=== PATIENT | female | born 1955 | race Caucasian/White ===

== ENCOUNTER 2016-11-13 09:59 | Emergency (ER) | payer MEDICAID ==
[~2016-11-13] VITALS: Ht 165.1 cm; Wt 102.5 kg
[~2016-11-13 09:59] MED LIST: BENA20TA48 PO; CIPR500T4 PO; METF500T4 PO; NAPR-688 PO; OMEP20CA16 PO; ONDA4TAB8 PO; PANT40TA3 PO; TRAM50TA2 PO
[2016-11-13 10:06] VITALS: Ht 165.1 cm; Wt 102.5 kg
[2016-11-13 12:17] LABS: URINE BLOOD (Dip) POC 1+ (NEGATIVE)
[2016-11-13 12:35] LABS: ADD SCAN DIFF NO
[2016-11-13 12:39] LABS: ABNORMAL IP MESSAGE 1; BASOPHIL # 0.1 10^3/ul (0.0-0.1); BASOPHILS % 1.2 % (0.0-2.0); EOSINOPHILS # 0.1 10^3/ul (0.0-0.5); HEMATOCRIT 43.9 % (37.0-47.0); HEMOGLOBIN 14.4 g/dl (12.0-16.0); LYMPHOCYTES % 25.4 % (15.0-51.0); MEAN CORPUSCULAR HEMOGLOBIN 33.9 pg (29.0-33.0); MEAN CORPUSCULAR HGB CONC 32.8 g/dl (32.0-37.0); MEAN CORPUSCULAR VOLUME 103.3 fl (82.0-101.0); MEAN PLATELET VOLUME 12.2 fl (7.4-10.4); MONOCYTE # 0.5 10^3/ul (0.3-0.9); MONOCYTES % 11.2 % (0.0-11.0); NEUTROPHIL # 2.4 10^3/ul (1.6-7.5); NEUTROPHILS % 58.7 % (39.0-77.0); PLATELET COUNT 92 10^3/UL (140-415); RED BLOOD COUNT 4.25 10^6/ul (4.20-5.40)
--- NOTE | 2016-11-13 12:49 | RADRPT ---
PROCEDURE: CT Brain without contrast. CLINICAL INDICATION: facial pain TECHNIQUE: A multiplanar CT of the brain was performed on a CT scanner utilizing axial imaging fro m the skull base through the vertex without IV contrast. The CTDIvol is 42.81 mGy and the DLP is 63 0.2 mGycm. One or more of the following dose reduction techniques were utilized: Automated exposur e control, adjustment of the mA and/or kV according to patient size, use of iterative reconstruction technique. COMPARISON: None FINDINGS: No evidence of intracranial hemorrhage or abnormal extra-axial fluid collection. The brain parenchyma is normal attenuation morphology with preservation of matt white differentiatio n and age appropriate size of the ventricles and subarachnoid spaces. The basal cisterns, posterior fossa contents, brainstem, craniocervical junction, orbits, pituitary axis, paranasal sinuses, mastoid air cells, and calvarium are unremarkable. IMPRESSION: 1. No intracranial hemorrhage or acute intracranial abnormality. RPTAT:AAJJ Physician Von Date Time Electronically viewed and signed by Physician Von on 11/13/2016 12:49 YAMILKA/
[2016-11-13 12:50] LABS: ALBUMIN 3.8 g/dl (3.3-4.9); ALBUMIN/GLOBULIN RATIO 0.88; BILIRUBIN,INDIRECT 1.1 mg/dl (0-1.1); BILIRUBIN,TOTAL 1.1 mg/dl (0.2-1.3); CALCIUM 9.5 mg/dl (8.4-10.2); CREATININE 0.56 mg/dl (0.44-1.00); POTASSIUM 4.4 mmol/L (3.5-5.1); TOTAL PROTEIN 8.1 g/dl (6.1-8.1)
--- NOTE | 2016-11-13 13:03 | RADRPT ---
PROCEDURE: CT Sinuses. CLINICAL INDICATION: facial pain TECHNIQUE: A CT of the sinuses was performed on a multidetector CT scanner utilizing direct bran l images. Sagittal and axial reformatted images were made. The CTDIvol is 29.45 and the DLP is 514 .47 mGycm. One or more of the following dose reduction techniques were utilized: Automated exposu re control, adjustment of the mA and/or kV according to patient size, use of iterative reconstructio n technique. COMPARISON: Headache and sinusitis. FINDINGS: Skull base: The cribriform plate, fovea ethmoidalis, lamina papyracea, anterior cranial fossa and pi tuitary sella are intact and normal in appearance. The anterior ethmoid artery sulcus and normal pos ition and symmetric bilaterally. Maxillary sinuses: The maxillary sinuses are clear without significant mucosal thickening or air-fluid levels. The ost iomeatal units are patent bilaterally. Ethmoid air cells: The ethmoid air cells are clear without significant mucosal thickening or air-fluid levels. Prominen t agger nasi cells Sphenoid sinuses: The sphenoethmoidal recesses appear grossly patent on the reformatted images. The sphenoid sinuses are clear. Frontal sinuses: The frontal recesses are both patent. The frontal sinuses are clear. Nasal cavity: Mild rightward deviation of the midportion of the nasal septum. Nasopharynx: The contours of the nasopharynx are normal. Mastoid air cells: Mastoid air cells are clear bilaterally. IMPRESSION: 1. Grossly unremarkable CT of the sinuses. RPTAT:AAJJ Physician Von Date Time Electronically viewed and signed by Physician Von on 11/13/2016 13:03 YAMILKA/
[2016-11-13] MEDS ORDERED: KETOROLAC 15 MG INJ IM STA (13:33)
[2016-11-13 14:01] LABS: PLATELET ESTIMATE PLT APPEAR DECREASED
[2016-11-13] MEDS ORDERED: NAPR-260 PO (14:06)
[2016-11-13] MEDS ORDERED: SODI30SP2 NS (14:15)
[2016-11-13 14:50] VITALS: BP 140/74; PULSE 66; RESP 18
--- NOTE | 2016-11-13 15:10 | ERD ---
ER Documentation Chief Complaint Date/Time DATE: 11/13/16 TIME: 14:41 Chief Complaint Complains of severe headache x 3 days HPI Patient is a 61 year old female with a past medical history of hypertension, diabetes, hyperlipidemia and cirrhosis who presents to the ED with headache on the top of her head x 1 month. She states that the pain comes and goes. She denies stating that this is the worst headache of her life. She states that she has had headaches like this in the past. She also complains of nosebleed on and off for 6 weeks. States that she has had nasal congestion and runny nose. She has also had a cough but the cough has resolved. Denies shortness of breath, chest pain or difficulty breathing. Denies dizziness, neck pain or neck stiffness. Denies abdominal pain, nausea, vomiting or diarrhea. Denies any trauma or triggering factor to her headache. She is not taking any medication for her symptoms. Denies leg pain or swelling. Patient also states tenderness in her maxillary and nasal area. She denies any trauma. But states that painful to touch. She also complains of mild numbness on the left side of her face on and off for the last month. She denies difficulty speaking walking. ROS All systems reviewed and are negative except as per history of present illness. Medications Home Meds Active Scripts Sodium Chloride (Saline Nasal [place]) 30 Ml [place], 30 ML NS BID for 14 Days, SPRAY Prov:MANNY COOPER PA-C 11/13/16 Naproxen* (Naprosyn*) 500 Mg Tablet, 500 MG PO BID Y for PAIN AND/OR INFLAMMATION, #30 TAB Prov:MANNY COOPER PA-C 11/13/16 Ondansetron Hcl* (Zofran*) 4 Mg Tablet, 4 MG PO Q6H for NAUSEA AND/OR VOMITING, #12 TAB Prov:HEBERT PACHECO MD 06/23/16 Pantoprazole* (Protonix*) 40 Mg Tablet.dr, 40 MG PO DAILY, #20 TAB Prov:HEBERT PACHECO MD 06/23/16 Tramadol HCl (Tramadol HCl) 50 Mg Tablet, 50 MG PO Q6 Y for PAIN, #12 TAB Prov:HEBERT PACHECO MD 06/23/16 Reported Medications Ciprofloxacin Hcl* (Ciprofloxacin Hcl*) 500 Mg Tablet, 500 MG PO Q12, #14 TAB 06/23/16 Omeprazole* (Omeprazole*) 20 Mg Capsule.dr, 20 MG PO BID, #60 CAP 06/23/16 Metformin Hcl* (Metformin Hcl*) 500 Mg Tablet, 500 MG PO WITH BREAKFAST DINNE, # 60 TAB 06/23/16 Benazepril Hcl* (Benazepril Hcl*) 20 Mg Tablet, 20 MG PO DAILY, #30 TAB 06/23/16 Naproxen* (Naproxen*) 500 Mg Tablet, 500 MG PO BID, TAB 06/23/16 Allergies Allergies: Coded Allergies: No Known Allergies (Verified Allergy, Mild, 06/23/16) PMhx/Soc Medical and Surgical Hx: pt denies Medical Hx, pt denies Surgical Hx History of Surgery: No Anesthesia Reaction: No Hx Neurological Disorder: No Hx Respiratory Disorders: No Hx Cardiac Disorders: No Hx Psychiatric Problems: No Hx Miscellaneous Medical Probl: Yes (DM, HIGH CHOLESTEROL; HTN) Hx Alcohol Use: No Hx Substance Use: No Hx Tobacco Use: No FmHx Family History: No coronary disease, No diabetes, No other Physical Exam Vitals Vital Signs Date Time Temp Pulse Resp B/P Pulse Ox O2 Delivery O2 Flow Rate FiO2 11/13/16 10:06 98.3 74 20 114/53 97 Physical Exam GENERAL: Well-developed, well-nourished female. Appears in no acute distress. HEAD: Normocephalic, atraumatic. EYES: Pupils are equally reactive bilaterally. EOMs grossly intact. No conjunctival erythema. ENT: Moist mucous membranes. No uvula deviation. No kissing tonsils. No exudates. NECK: Supple. No lymphadenopathy or thyromegaly. No meningismus. negative kernig. negative brudinski. LUNG: Clear to auscultation bilaterally. No rhonchi, wheezing, rales or coarse breath sounds. HEART: Regular rate and rhythm. No murmurs, rubs or gallops. Extremities: Equal pulses bilaterally. No peripheral clubbing, cyanosis or edema. No unilateral leg swelling. NEUROLOGIC: Alert and oriented. Moving all four extremities. 5/5 strength in all extremities. Normal speech. Steady gait. Cranial nerves II through XII intact SKIN: Normal color. Warm and dry. No rashes or lesions. Capillary refill < 2 seconds Result Diagram: 11/13/16 1215 11/13/16 1215 Results 24 hrs Laboratory Tests Test 11/13/16 12:15 11/13/16 12:18 White Blood Count 4.010^3/ul Red Blood Count 4.2510^6/ul Hemoglobin 14.4g/dl Hematocrit 43.9% Mean Corpuscular Volume 103.3fl Mean Corpuscular Hemoglobin 33.9pg Mean Corpuscular Hemoglobin Concent 32.8g/dl Red Cell Distribution Width 14.0% Platelet Count 9210^3/UL Mean Platelet Volume 12.2fl Neutrophils % 58.7% Lymphocytes % 25.4% Monocytes % 11.2% Eosinophils % 3.0% Basophils % 1.2% Nucleated Red Blood Cells % 0.0/100WBC Neutrophils # 2.410^3/ul Lymphocytes # 1.010^3/ul Monocytes # 0.510^3/ul Eosinophils # 0.110^3/ul Basophils # 0.110^3/ul Nucleated Red Blood Cells # 0.010^3/ul Differential Comment AUTO w/SCAN Platelet Estimate PLT APPEAR DECREASED Sodium Level 139mmol/L Potassium Level 4.4mmol/L Chloride Level 107mmol/L Carbon Dioxide Level 27mmol/L Anion Gap 9 Blood Urea Nitrogen 12mg/dl Creatinine 0.56mg/dl Glucose Level 89mg/dl Calcium Level 9.5mg/dl Total Bilirubin 1.1mg/dl Direct Bilirubin 0.00mg/dl Indirect Bilirubin 1.1mg/dl Aspartate Amino Transf (AST/SGOT) 64IU/L Alanine Aminotransferase (ALT/SGPT) 57IU/L Alkaline Phosphatase 125IU/L Total Protein 8.1g/dl Albumin 3.8g/dl Globulin 4.30g/dl Albumin/Globulin Ratio 0.88 Lipase 347U/L Bedside Urine pH (LAB) 5.5 Bedside Urine Protein (LAB) Negative Bedside Urine Glucose (UA) Negative Bedside Urine Ketones (LAB) Negative Bedside Urine Blood 1+ Bedside Urine Nitrite (LAB) Negative Bedside Urine Leukocyte Esterase (L Negative Current Medications Medications (Trade) Dose Ordered Sig/Sim Route PRN Reason Start Time Stop Time Status Last Admin Dose Admin Ketorolac Tromethamine (Toradol) 15 mg ONCE STAT IM 11/13/16 13:33 11/13/16 13:42 DC 11/13/16 13:45 Procedures/MDM ER COURSE: I kept the patient and/or family informed of laboratory and diagnostic imaging results throughout the emergency room course. EKG, MONITORS, & DIAGNOSTIC IMAGING: [place] [address] Radiology Main Line: [phone] DIAGNOSTIC IMAGING REPORT Patient: KRISTINE GUZMAN : 1955 Age: 61 Sex: F MR #: [id number] DOS: 11/13/16 1157 Ordering MD: MANNY COOPER PA-C Location: [facility] Room/Bed: PROCEDURE: CT Brain without contrast. CLINICAL INDICATION: facial pain TECHNIQUE: A multiplanar CT of the brain was performed on a CT scanner utilizing axial imaging from the skull base through the vertex without IV contrast. The CTDIvol is 42.81 mGy and the DLP is 630.2 mGycm. One or more of the following dose reduction techniques were utilized: Automated exposure control, adjustment of the mA and/or kV according to patient size, use of iterative reconstruction technique. COMPARISON: None FINDINGS: No evidence of intracranial hemorrhage or abnormal extra-axial fluid collection. The brain parenchyma is normal attenuation morphology with preservation of matt white differentiation and age appropriate size of the ventricles and subarachnoid spaces. The basal cisterns, posterior fossa contents, brainstem, craniocervical junction , orbits, pituitary axis, paranasal sinuses, mastoid air cells, and calvarium are unremarkable. IMPRESSION: 1. No intracranial hemorrhage or acute intracranial abnormality. RPTAT:AAJJ Physician Von Date Time Electronically viewed and signed by Physician Von on 11/13/2016 12:49 YAMILKA/ CC: MANNY COOPER PA-C [place] [address] Radiology Main Line: [phone] DIAGNOSTIC IMAGING REPORT Patient: KRISTINE GUZMAN : 1955 Age: 61 Sex: F [id number] DOS: 11/13/16 1157 Ordering MD: MANNY COOPER PA-C Location: [facility] Room/Bed: PROCEDURE: CT Sinuses. CLINICAL INDICATION: facial pain TECHNIQUE: A CT of the sinuses was performed on a multidetector CT scanner utilizing direct coronal images. Sagittal and axial reformatted images were made. The CTDIvol is 29.45 and the DLP is 514.47 mGycm. One or more of the following dose reduction techniques were utilized: Automated exposure control, adjustment of the mA and/or kV according to patient size, use of iterative reconstruction technique. COMPARISON: Headache and sinusitis. FINDINGS: Skull base: The cribriform plate, fovea ethmoidalis, lamina papyracea, anterior cranial fossa and pituitary sella are intact and normal in appearance. The anterior ethmoid artery sulcus and normal position and symmetric bilaterally. Maxillary sinuses: The maxillary sinuses are clear without significant mucosal thickening or air- fluid levels. The ostiomeatal units are patent bilaterally. Ethmoid air cells: The ethmoid air cells are clear without significant mucosal thickening or air- fluid levels. Prominent agger nasi cells Sphenoid sinuses: The sphenoethmoidal recesses appear grossly patent on the reformatted images. The sphenoid sinuses are clear. Frontal sinuses: The frontal recesses are both patent. The frontal sinuses are clear. Nasal cavity: Mild rightward deviation of the midportion of the nasal septum. Nasopharynx: The contours of the nasopharynx are normal. Mastoid air cells: Mastoid air cells are clear bilaterally. IMPRESSION: 1. Grossly unremarkable CT of the sinuses. RPTAT:AAJJ Physician Von Date Time Electronically viewed and signed by Physician Von on 11/13/2016 13:03 YAMILKA/ CC: MANNY COOPER PA-C MEDICATIONS: Toradol 30 mg IM. Tolerated well with no adverse reaction. LAB INTERPRETATION: CBC showed no evidence of systemic infection or severe anemia. CMP showed no evidence of electrolyte abnormalities, severe acidosis, alkalosis, renal failure , or liver disease. Lipase showed no evidence of acute pancreatitis. UA showed no evidence of leukocytes, nitrites or hematuria. Urine test was negative. MEDICAL DECISION MAKING: This is a 61-year-old female with a past medical history of hypertension, hyperlipidemia, cirrhosis and diabetes who presents with headache, facial pain on and off 1 month vital signs were reviewed. Patient is afebrile. Patient is not hypoxic. Patient has a temperature of 98.3 with a pulse of 74 and a blood pressure of 114/53. Patient's CAT scan is read by radiologist was unremarkable. Patient has headache of unknown etiology. Patient stated improvement in symptoms after Toradol. Low suspicion for intracranial hemorrhage, meningitis, intracranial mass, concussion, temporal arteritis, stroke, elevated intracranial pressure, seizure. Low suspicion for ACS, PE, AAA , dissection, DVT. Patient is here hemodynamically stable and I have low suspicion for anemia or other blood disorders. DISCHARGE: At this time, patient is stable for discharge and outpatient management with no new complaints during the ER course. Patient was sent home with Naprosyn and saline nasal spray. Patient will be discharged home with instructions to recheck for new or worsening symptoms such as fever, nausea, weakness, LOC and to follow up with primary care in the next 1-2 days. Patient was advised to return to the ER for any new or worsening symptoms. Plan was discussed and patient and/or family understands and agrees. Home instructions were given. Departure Diagnosis: Primary Impression: Headache Headache type: unspecified Headache chronicity pattern: unspecified pattern Intractability: not intractable Qualified Code: R51 - Nonintractable headache, unspecified chronicity pattern, unspecified headache type Condition: Stable Patient Instructions: Self-Care for Headaches Referrals: [facility] Usted se hurley hecho un examen mdico de control que le indica que no est en buster condicin que requiera tratamiento urgente en el Departamento de Emergencia. Un estudio ms profundo y el tratamiento de best condicin pueden esperar sin ningn riesgo hasta que usted sea atendida/o en el consultorio de best mdico o buster cl bridgett. Es responsabilidad suya arreglar buster srini para el seguimiento del dorina. MANEJO DE CONDICIONES NO URGENTES EN EL FUTURO 1) Si usted tiene un mdico de atencin primaria: Usted debera llamar a best mdico de atencin primaria antes de venir al departamento de emergencia. Despus de las horas de consultorio, best doctor o best asociado/a est disponible por telfono. El mdico o enfermero de justin en el servicio telefnico puede asesorarle por yohan medio para atender el problema, o dorina contrario se puede programar buster srini. 2) Si usted no tiene un mdico de atencin primaria: Llame al mdico o clnica de referencia que aparece abajo mike las horas de consultorio para hacer buster srini para que le vean. CLINICAS: [place] [address] [phone] [facility] [phone] [facility] [phone] [place] [phone] [place] [phone] [facility]. [phone] [address] Additional Instructions: Llame al doctor MAANA y roland buster SRINI PARA DENTRO DE 1-2 MATHEWS.Dgale a la secretaria que nosotros le instruimos hacer esta srini.Avise o llame si best condicin se empeora antes de la srini. Regresa aqui si peor o no mejor. MANNY COOPER PA-C November 13, 2016 15:02
== END 2016-11-13 14:50 | disposition home or self-care (01) ==
LOC: FTE 09:59
DX: R51 Headache (principal); I10 Essential (primary) hypertension; E11.9 Type 2 diabetes mellitus without complications; Z79.84 Long term (current) use of oral hypoglycemic drugs
CPT/HCPCS: 70450; 70486; 80053; 81003; 83690; 85025; 96372; J1885; Z7502

== ENCOUNTER 2017-02-10 16:30 | Inpatient (IN) | payer MEDICAID ==
[~2017-02-10] VITALS: Ht 165.1 cm; Wt 107.0 kg
[~2017-02-10 16:30] MED LIST changes: +NAPR-260 PO; +SODI30SP2 NS
[2017-02-10] MEDS ORDERED: ASPIRIN 325 MG TAB PO STA (16:58)
[2017-02-10] MEDS ORDERED: NITROGLYCERIN (SL) 0.4 MG TAB SL PRN (17:00)
[2017-02-10] MEDS ORDERED: GLIP5TAB13 PO (17:16)
[2017-02-10] MEDS ORDERED: ALBU8.5H3 INH (17:16)
[2017-02-10 17:46] LABS: ABNORMAL IP MESSAGE 1; BASOPHILS % 1.1 % (0.0-2.0); EOSINOPHILS # 0.1 10^3/ul (0.0-0.5); EOSINOPHILS % 3.4 % (0.0-7.0); HEMATOCRIT 39.8 % (37.0-47.0); HEMOGLOBIN 13.8 g/dl (12.0-16.0); LYMPHOCYTES # 0.9 10^3/ul (0.8-2.9); LYMPHOCYTES % 23.3 % (15.0-51.0); MEAN CORPUSCULAR HEMOGLOBIN 34.9 pg (29.0-33.0); MEAN CORPUSCULAR HGB CONC 34.7 g/dl (32.0-37.0); MEAN CORPUSCULAR VOLUME 100.8 fl (82.0-101.0); MEAN PLATELET VOLUME 12.1 fl (7.4-10.4); MONOCYTE # 0.5 10^3/ul (0.3-0.9); MONOCYTES % 13.3 % (0.0-11.0); NEUTROPHIL # 2.2 10^3/ul (1.6-7.5); NEUTROPHILS % 58.6 % (39.0-77.0); PLATELET COUNT 82 10^3/UL (140-415); RED BLOOD COUNT 3.95 10^6/ul (4.20-5.40); RED CELL DISTRIBUTION WIDTH 13.6 % (11.5-14.5); WHITE BLOOD COUNT 3.8 10^3/ul (4.8-10.8)
[2017-02-10 17:51] LABS: POSITIVE DIFF @See below
[2017-02-10 18:01] LABS: INR 1.16; PROTIME 14.8 Sec (12.2-14.2); PT RATIO 1.2
[2017-02-10 18:02] LABS: PARTIAL THROMBOPLASTIN TIME 30.7 Sec (25.0-35.0)
[2017-02-10 18:04] LABS: ALANINE AMINOTRANSFERASE 59 IU/L (13-69); ALBUMIN 3.8 g/dl (3.3-4.9); ALBUMIN/GLOBULIN RATIO 1.02; ALKALINE PHOSPHATASE 130 IU/L (42-121); ANION GAP 16 (8-16); ASPARTATE AMINO TRANSFERASE 64 IU/L (15-46); BILIRUBIN,INDIRECT 0.8 mg/dl (0-1.1); BILIRUBIN,TOTAL 0.8 mg/dl (0.2-1.3); BLOOD UREA NITROGEN 12 mg/dl (7-20); CALCIUM 9.1 mg/dl (8.4-10.2); CARBON DIOXIDE 27 mmol/L (21-31); CHLORIDE 104 mmol/L (97-110); CREATINE KINASE 123 IU/L (23-200); CREATININE 0.56 mg/dl (0.44-1.00); GLUCOSE 104 mg/dl (70-220); POTASSIUM 4.1 mmol/L (3.5-5.1); SODIUM 143 mmol/L (135-144); TOTAL PROTEIN 7.5 g/dl (6.1-8.1)
--- NOTE | 2017-02-10 18:14 | ERA ---
ER Documentation Chief Complaint Date/Time DATE: 02/10/17 TIME: 18:11 Chief Complaint pain @ left chest area radiates to upper back HPI This is a 7-year-old female that presents to the emergency department complaining of left-sided chest pain that has been intermittent over the past 12 hours. Patient indicates that the pain is a pressure-like sensation and does radiate to her back. The pain is 8 out of 10 in intensity. She denied associated symptoms of nausea vomiting or diaphoresis. She stated she has not experienced any fever shaking or chills. She also indicates she has had swelling of both of her legs has been present for the past 3 weeks. She denies any shortness of breath at rest or exertion. She has a history of non-insulin- dependent diabetes mellitus high cholesterol and cirrhosis of the liver and denies any history of alcohol abuse. She denies any recent travel or prolonged immobilization ROS All systems reviewed and are negative except as per history of present illness. Medications Home Meds Reported Medications Glipizide* (Glipizide*) 5 Mg Tablet, 5 MG PO BID, TAB 02/10/17 Albuterol Sulfate* (Proair HFA*) 8.5 Gm Hfa.aer.ad, 2 PUFF INH Q6, #1 INHALER 02/10/17 Omeprazole* (Omeprazole*) 20 Mg Capsule.dr, 20 MG PO BID, #60 CAP 06/23/16 Metformin Hcl* (Metformin Hcl*) 500 Mg Tablet, 500 MG PO WITH BREAKFAST DINNE, # 60 TAB 06/23/16 Benazepril Hcl* (Benazepril Hcl*) 20 Mg Tablet, 40 MG PO DAILY, #30 TAB 06/23/16 Discontinued Reported Medications Ciprofloxacin Hcl* (Ciprofloxacin Hcl*) 500 Mg Tablet, 500 MG PO Q12, #14 TAB 06/23/16 Naproxen* (Naproxen*) 500 Mg Tablet, 500 MG PO BID, TAB 06/23/16 Discontinued Scripts Sodium Chloride (Saline Nasal [place]) 30 Ml [place], 30 ML NS BID for 14 Days, SPRAY Prov:MANNY COOPER PA-C 11/13/16 Naproxen* (Naprosyn*) 500 Mg Tablet, 500 MG PO BID Y for PAIN AND/OR INFLAMMATION, #30 TAB Prov:MANNY COOPER PA-C 11/13/16 Ondansetron Hcl* (Zofran*) 4 Mg Tablet, 4 MG PO Q6H for NAUSEA AND/OR VOMITING, #12 TAB Prov:HEBERT PACHECO MD 06/23/16 Pantoprazole* (Protonix*) 40 Mg Tablet.dr, 40 MG PO DAILY, #20 TAB Prov:HEBERT PACHECO MD 06/23/16 Tramadol HCl (Tramadol HCl) 50 Mg Tablet, 50 MG PO Q6 Y for PAIN, #12 TAB Prov:HEBERT PACHECO MD 06/23/16 Allergies Allergies: Coded Allergies: No Known Allergies (Verified Allergy, Mild, 06/23/16) PMhx/Soc History of Surgery: No Anesthesia Reaction: No Hx Neurological Disorder: No Hx Respiratory Disorders: No Hx Cardiac Disorders: No Hx Psychiatric Problems: No Hx Miscellaneous Medical Probl: Yes (DM, HIGH CHOLESTEROL; HTN) Hx Alcohol Use: No Hx Substance Use: No Hx Tobacco Use: No Smoking Status: Never smoker Physical Exam Vitals Vital Signs Date Time Temp Pulse Resp B/P Pulse Ox O2 Delivery O2 Flow Rate FiO2 02/10/17 16:34 98.0 91 18 140/62 98 Physical Exam Constitutional:Well-developed. Well-nourished. HEENT:Normocephalic. Atraumatic.Pupils were equal round reactive to light. Moist mucous membranes.No tonsillar exudates. Neck: No nuchal rigidity. No lymphadenopathy. No posterior cervical spine tenderness or step-offs. Respiratory: Not using accessory muscles of respiration.Lungs were clear to auscultation bilaterally. No rhonchi. No rales. No wheezing. Cardiovascular: Regular rate regular rhythm.No murmurs. No rubs were appreciated.S1, S2 normal. Distal pulses are palpable 2+ bilaterally. GI: Abdomen was soft. Nontender. Non Distended. No pulsatile abdominal masses or bruits. No rebound. No guarding. Bowel sounds were present and normal. Muscle skeletal: Full range of motion of both the upper and lower extremities bilaterally.Normal muscle tone.No assymetrical calf tenderness or swelling. Skin: No petechia, no purpura. No lesions on the palms or the soles of the feet. No maculopapular rash. NEURO: Patient was alert, awake, orientated x3.No facial droop. Gait observed and normal with no ataxia.Speech had regular rate and rhythm. No focal neurological deficits. Result Diagram: 02/10/17 1715 02/10/17 1715 Results 24 hrs Laboratory Tests Test 02/10/17 17:15 White Blood Count 3.810^3/ul Red Blood Count 3.9510^6/ul Hemoglobin 13.8g/dl Hematocrit 39.8% Mean Corpuscular Volume 100.8fl Mean Corpuscular Hemoglobin 34.9pg Mean Corpuscular Hemoglobin Concent 34.7g/dl Red Cell Distribution Width 13.6% Platelet Count 8210^3/UL Mean Platelet Volume 12.1fl Neutrophils % 58.6% Lymphocytes % 23.3% Monocytes % 13.3% Eosinophils % 3.4% Basophils % 1.1% Nucleated Red Blood Cells % 0.0/100WBC Neutrophils # 2.210^3/ul Lymphocytes # 0.910^3/ul Monocytes # 0.510^3/ul Eosinophils # 0.110^3/ul Basophils # 0.010^3/ul Nucleated Red Blood Cells # 0.010^3/ul Prothrombin Time 14.8Sec Prothrombin Time Ratio 1.2 INR International Normalized Ratio 1.16 Activated Partial Thromboplast Time 30.7Sec Sodium Level 143mmol/L Potassium Level 4.1mmol/L Chloride Level 104mmol/L Carbon Dioxide Level 27mmol/L Anion Gap 16 Blood Urea Nitrogen 12mg/dl Creatinine 0.56mg/dl Glucose Level 104mg/dl Calcium Level 9.1mg/dl Total Bilirubin 0.8mg/dl Direct Bilirubin 0.00mg/dl Indirect Bilirubin 0.8mg/dl Aspartate Amino Transf (AST/SGOT) 64IU/L Alanine Aminotransferase (ALT/SGPT) 59IU/L Alkaline Phosphatase 130IU/L Creatine Kinase 123IU/L Creatine Kinase Index Pending Creatinine Kinase MB (Mass) Pending Troponin I Pending B-Type Natriuretic Peptide Pending Total Protein 7.5g/dl Albumin 3.8g/dl Globulin 3.70g/dl Albumin/Globulin Ratio 1.02 Current Medications Medications (Trade) Dose Ordered Sig/Sim Route PRN Reason Start Time Stop Time Status Last Admin Dose Admin Aspirin (Aspirin) 325 mg ONCE STAT PO 02/10/17 16:58 02/10/17 17:00 DC 02/10/17 17:21 Nitroglycerin (Nitroglycerin (Sl Tab) 0.4 Mg) 1 tab Q5M UP TO 3 DOSES PRN SL CHEST PAIN 02/10/17 17:00 02/10/17 17:21 Procedures/MDM The patient presented to the emergency department with chest pain. My clinical evaluation and workup was to distinguish minor causes of chest pain from acute life threatening conditions such as myocardial infarction, pulmonary embolism, aortic dissection, esophageal rupture, cardiac tamponade. The patient was placed on a hose builder and continuous pulse oximetry. IV access established by nursing staff. Patient was given 325 mg of aspirin p.o. and nitroglycerin. This did not improve her chest pain 12 Lead EKG tracing ordered and reviewed by myself showed: Normal sinus rhythm of 90 bpm and no arrhythmia. NM interval normal. QRS duration normal. No ST segment elevation No ST segment depression. No changes consistent with acute ischemia. I obtained a 1 view chest radiograph and there is no infiltrates pneumothorax or pleural effusions and no widened mediastinum. My clinical suspicion was low for aortic dissection. Given the patient has multiple risk factors for myocardial ischemia she will be admitted for serial 12-lead EKG tracings and cardiac set of enzymes. Departure Diagnosis: Primary Impression: Chest pain Qualified Code: R07.9 - Chest pain, unspecified type Condition: Serious CINDY COE Feb 10, 2017 18:14
[2017-02-10 18:18] LABS: B-TYPE NATRIURETIC PEPTIDE 181 PG/ML (0-125); CK-MB 1.12 ng/ml (0.0-2.4)
[2017-02-10 18:21] LABS: TROPONIN-I < 0.012 ng/ml (0.00-0.12)
[2017-02-10] MEDS ORDERED: ACETAMINOPHEN 325 MG TAB PO PRN (19:00)
[2017-02-10] MEDS ORDERED: ONDANSETRON 4 MG INJ IV PRN ×2 (19:00→20:30)
--- NOTE | 2017-02-10 19:08 | RADRPT ---
PROCEDURE: XR Chest. CLINICAL INDICATION: Chest pain. TECHNIQUE: Anterior chest x-ray. COMPARISON: 01/12/2016 FINDINGS: There is pulmonary vascular congestion. The lungs are clear. No pleural effusion identified. There is no evidence of pneumothorax. The heart size is large. The cardiomediastinal silhouette is otherwise unremarkable. The soft tissues are normal. Osseous structures are unremarkable. IMPRESSION: 1. Findings suggesting mild congestive heart failure with cardiomegaly, pulmonary vascular congesti on and interstitial edema. 2. No definite evidence pneumonia. RPTAT: HLDM .Collin Ceron MD, MD Date Time Electronically viewed and signed by .Collin Ceron MD, on 02/10/2017 19:07 .Hilda
[2017-02-10] MEDS ORDERED: NACL 0.9% 3 ML SYG IV SCH (20:30)
[2017-02-10 20:55] VITALS: TEMP 98
[2017-02-10 21:20] VITALS: BP 116/83; PULSE 81; RESP 20
[2017-02-10 21:33] LABS: CREATINE KINASE 114 IU/L (23-200)
[2017-02-10 21:55] VITALS: Ht 165.1 cm; Wt 107.0 kg
[2017-02-10 21:56] LABS: TROPONIN-I < 0.012 ng/ml (0.00-0.12)
[2017-02-10] MEDS ORDERED: GLUCOSE GEL 15 GRAM TUBE BUCCAL PRN (23:00)
[2017-02-10] MEDS ORDERED: DEXTROSE 50% 50 ML SYRINGE IV PRN ×2 (23:00)
[2017-02-10] MEDS ORDERED: GLUCAGON 1 MG INJ IM PRN (23:00)
[2017-02-10] MEDS ORDERED: GLUCOSE GEL 15 GRAM TUBE PO PRN ×2 (23:00)
[2017-02-11] VITALS (13 sets, daily range): BP systolic 106–131; BP diastolic 48–70; PULSE 64–84; RESP 18–20
[2017-02-11] MEDS ORDERED: ALBUTEROL HFA 8 GM INHALER INH SCH (02:00)
[2017-02-11 02:44] LABS: CREATINE KINASE 107 IU/L (23-200)
[2017-02-11 02:56] LABS: CK-MB 0.88 ng/ml (0.0-2.4)
[2017-02-11 03:07] LABS: TROPONIN-I < 0.012 ng/ml (0.00-0.12)
[2017-02-11] MEDS ORDERED: PANTOPRAZOLE 40 MG INJ IV SCH (06:00)
--- NOTE | 2017-02-11 07:18 | HP ---
Date/Time of Note Date/Time of Note DATE: 02/11/17 TIME: 07:05 Assessment/Plan VTE Prophylaxis VTE Prophylaxis Intervention: SCD's Lines/Catheters IV [facility]ter Type (from [facility]): Saline Lock Urinary Cath still in place: No Assessment/Plan Chief Complaint/Hosp Course This is a 61-year-old female being admitted to the telemetry floor for: #1 chest pain: ACS versus CHF versus musculoskeletal. Patient does have significant risk factors for ACS. Chest x-ray does show some possible signs of congestion and heart failure however clinically patient does not appear overloaded, she is satting at 90% on room air and in no distress. She does have mild trace edema of the right lower extremity lungs are clear to auscultation. At the current time will trend troponins 3. Will check a 2D echocardiogram. Will have cardiology consult. Her BNP is slightly elevated. Again we will evaluate with an echocardiogram her heart morphology. Lasix 40 mg IV 1 for edema which likely could be mixed multifactorial related to the possible cirrhosis versus possible new onset CHF. Check lipids, TSH. #2 cirrhosis: Patient does not appear to be decompensated at this time or encephalopathic. She states that she is going to be following up as an outpatient within the next week or so for her cirrhosis. She actually does not know what was the cause of it she denies alcohol use or IV drug use or transfusions in the past. Again she is being worked up as an outpatient for this. Patient currently right now is not on any cirrhosis specific medications. Likely on discharge we will consider Lasix/Spironolactone. #3 Hypertension: Continue OLIVIA #4 hyperlipidemia: Continue statin #5 diabetes mellitus: We will hold metformin at this time. Will check a hemoglobin A1c. Patient may need to be on insulin sliding scale/glucose checks depending on her blood sugars #6 DVT and GI prophylaxis: SCDs, Protonix Further treatment strategy will be implemented as per the clinical course. Problems: HPI/ROS Admit Date/Time Admit Date/Time Feb 10, 2017 at 18:35 Hx of Present Illness Chief complaint: Chest pain This is a 61-year-old female that presents to the emergency department complaining of left-sided chest pain that has been intermittent over the past 12 hours. Patient indicates that the pain is a pressure-like sensation and does radiate to her back. The pain is 8 out of 10 in intensity. She denied associated symptoms of nausea vomiting or diaphoresis. She stated she has not experienced any fever shaking or chills. She also indicates she has had swelling of both of her legs has been present for the past 3 weeks. She denies any shortness of breath at rest or exertion. She has a history of non-insulin- dependent diabetes mellitus high cholesterol and cirrhosis of the liver and denies any history of alcohol abuse. Allergies: NKDA Medications: See MAR ROS Const: Negative for fever, chills, weight gain or weight loss, fatigue, or diaphoresis Eyes : No pain discharge or redness or change in visual acuity ENT: No pain, sore throat, congestion, congestion, dysphagia or discharge Respiratory: As per HPI Cardiovascular: As per HPI GI : no change in appetite, abdominal pain, nausea, vomiting, diarrhea, constipation, or change in the color his stool Genitourinary: No dysuria, hematuria, flank pain , discharge or CVA tenderness Musculoskeletal: As per HPI Skin: No rash, bruising or hives Neuro: No headache, dizziness, syncope, seizure, focal weakness Endocrine: No polyuria, polydipsia, temperature intolerance Psych: No hallucination, depression, anxiety or suicidal ideation PMH/Family/Social Past Medical History Hypertension, hyperlipidemia, cirrhosis, diabetes mellitus Past Surgical History Past Surgical Hx: no surgical history Family History Significant Family History: diabetes (Mom) Social History Alcohol Use: none Smoking Status: Never smoker Drug Use: none Exam/Review of Systems Vital Signs Vitals Vital Signs Date Time Temp Pulse Resp B/P Pulse Ox O2 Delivery O2 Flow Rate FiO2 02/11/17 04:05 64 02/11/17 04:00 98.6 18 116/70 98 02/10/17 20:55 Room Air Intake and Output 02/10/17 02/10/17 02/11/17 15:00 23:00 07:00 Intake Total 240 ml Balance 240 ml Exam Exam General: Patient is an obese female pleasant in nature in no acute distress. HEENT: Atraumatic, normocephalic. The pupils are equal, round and reactive. Extraocular motor are intact Neck: Supple with full range of motion. No rigidity or meningismus Chest: Nontender Lungs: Clear to auscultation bilaterally no crackles rales or wheezing Heart: Normal S1-S2, Regular rhythm and rate. No overt murmurs appreciated to auscultation Abdomen: Soft, obese, normal bowel sounds Extremities: Trace edema of the right lower extremity. Neurologic: Normal mental status, speech normal, cranial nerves II through XII are intact, motor and sensory are intact, no focal weakness Additional Comments EKG Normal sinus rhythm of 90 bpm and no arrhythmia. NM interval normal. QRS duration normal. No ST segment elevation No ST segment depression. No changes consistent with acute ischemia. As per ED physician documented PROCEDURE: XR Chest. CLINICAL INDICATION: Chest pain. TECHNIQUE: Anterior chest x-ray. COMPARISON: 01/12/2016 FINDINGS: There is pulmonary vascular congestion. The lungs are clear. No pleural effusion identified. There is no evidence of pneumothorax. The heart size is large. The cardiomediastinal silhouette is otherwise unremarkable. The soft tissues are normal. Osseous structures are unremarkable. IMPRESSION: 1. Findings suggesting mild congestive heart failure with cardiomegaly, pulmonary vascular congestion and interstitial edema. 2. No definite evidence pneumonia. RPTAT: HLDM .Collin Ceron MD, MD Date Time Electronically viewed and signed by .Collin Ceron MD, MD on 02/10/2017 19: 07 Labs Result Diagram: 02/10/17 1715 02/10/17 171 Medications Medications Current Medications Ondansetron HCl (Zofran Inj) 4 mg Q6H PRN IV NAUSEA AND/OR VOMITING; Start at 20:30 Acetaminophen (Tylenol Tab) 650 mg Q6H PRN PO PAIN LEVEL 1-3 OR FEVER; Start at 20:30 Pantoprazole (Protonix Iv) 40 mg DAILY@06 IV Last administered on 02/11/17t 05: 45; Admin Dose 40 MG; Start 02/11/17 at 06:00 Benazepril HCl (Lotensin) 40 mg DAILY PO ; Start 02/11/17 at 09:00 Miscellaneous Information 1 ea NOTE XX ; Start 02/10/17 at 23:00 Glucose (Glutose) 15 gm Q15M PRN PO DECREASED GLUCOSE; Start 02/10/17 at 23:00 Glucose (Glutose) 22.5 gm Q15M PRN PO DECREASED GLUCOSE; Start 02/10/17 at 23: 00 Dextrose (D50w Syringe) 25 ml Q15M PRN IV DECREASED GLUCOSE; Start 02/10/17 at 23:00 Dextrose (D50w Syringe) 50 ml Q15M PRN IV DECREASED GLUCOSE; Start 02/10/17 at 23:00 Glucagon (Glucagen) 1 mg Q15M PRN IM DECREASED GLUCOSE; Start 02/10/17 at 23:00 Glucose (Glutose) 15 gm Q15M PRN BUCCAL DECREASED GLUCOSE; Start 02/10/17 at 23 :00 MAYO GUILLEN Feb 11, 2017 07:16
[2017-02-11] MEDS ORDERED: FUROSEMIDE 40 MG INJ IV ONE (07:30)
[2017-02-11] MEDS: ALBUTEROL 18 GM INHALER INH SCH ×3 (08:00→20:59)
[2017-02-11 08:17] LABS: ABNORMAL IP MESSAGE 1; HEMATOCRIT 39.3 % (37.0-47.0); HEMOGLOBIN 13.5 g/dl (12.0-16.0); MEAN CORPUSCULAR HGB CONC 34.4 g/dl (32.0-37.0); PLATELET COUNT 75 10^3/UL (140-415); RED BLOOD COUNT 3.97 10^6/ul (4.20-5.40); RED CELL DISTRIBUTION WIDTH 13.6 % (11.5-14.5); WHITE BLOOD COUNT 2.3 10^3/ul (4.8-10.8)
[2017-02-11 08:30] LABS: POSITIVE DIFF @See below
[2017-02-11] MEDS: glipiZIDE 5 MG TAB PO SCH ×2 (08:38→17:10)
[2017-02-11] MEDS: BENAZEPRIL 40 MG TAB PO SCH (08:38)
[2017-02-11 08:43] LABS: ALBUMIN 3.4 g/dl (3.3-4.9); ALBUMIN/GLOBULIN RATIO 0.94; BILIRUBIN,INDIRECT 1.6 mg/dl (0-1.1); BILIRUBIN,TOTAL 1.6 mg/dl (0.2-1.3); CALCIUM 8.9 mg/dl (8.4-10.2); CHOL/HDL RATIO 3.4 RATIO; CREATININE 0.53 mg/dl (0.44-1.00); MAGNESIUM 1.8 mg/dl (1.7-2.5); POTASSIUM 3.7 mmol/L (3.5-5.1)
[2017-02-11 09:15] LABS: CREATINE KINASE 101 IU/L (23-200)
[2017-02-11 09:29] LABS: CK-MB 0.77 ng/ml (0.0-2.4)
[2017-02-11 09:36] LABS: TROPONIN-I < 0.012 ng/ml (0.00-0.12)
[2017-02-11 09:59] LABS: ANISOCYTOSIS 1+ (0-0); BASOPHILS % (M) 4 % (0-2); EOSINOPHILS % (M) 3 % (0-7); ERYTHROBLAST% (NRBC) (M) 2 % (0-0); GIANT THROMBO% (M) 12 % (0-0); MONOCYTES % (M) 12 % (0-11); PLATELET ESTIMATE DECREASED; POLYCHROMASIA 1+ (0-0); PROMYELOCYTES #M 0 # (0-0); PROMYELOCYTES % (M) 1 % (0-0)
--- NOTE | 2017-02-11 12:35 | RADRPT ---
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 Physician: MAYO GUILLEN Quality: Technically Difficult Study Procedures: Transthoracic echocardiogram with complete 2D, M-Mode, and doppler examination. Indications: Chest Pain. 2D/M Mode Doppler Measurement Value Normal Ranges Measurement Value Normal Ranges LVIDd 2D 4.6 3.5 - 5.6 cm AV Peak Amilcar 1.7 m/sec LVIDs 2D 3.3 2.1 - 4.1 cm AV Peak PG 12.0 mmHg FS 2D 28.0 % LVOT Peak Amilcar 1.3 m/sec LVPWd 2D 1.3 0.6 - 1.1 cm LVOT Peak PG 7.0 mmHg IVSd 2D 1.3 0.6 - 1.1 cm MV E Peak Amilcar 1.4 m/sec IVS/LVPW 2D 1.0 MV A Peak Amilcar 0.9 m/sec AoR Diam 2D 2.3 2.0 - 3.7 cm MV E/A 1.5 LA/Ao 2D 2 0 - 1 MV Decel Time 275 msec EDV 2D 99.9 cm3 MV E/A 1.5 ESV 2D 37.3 cm3 TR Peak Amilcar 2.0 m/sec LA Dimen 2D 3.7 2.3 - 4.0 cm TR Peak PG 16.0 mmHg RVSP 24.0 mmHg Findings Left Ventricle: Overall, normal left ventricular systolic function. Not all segments visualized. Normal left ventricular cavity size. Mild concentric left ventricular hypertrophy. Ejection fraction is visually estimated at 60 %. Right Ventricle: Normal right ventricular size. Normal right ventricular systolic function. Left Atrium: The left atrium is normal in size. Right Atrium: The right atrium is normal in size. Mitral Valve: Mild mitral leaflet calcification. Mild mitral annular calcification. Trace mitral regurgitation. Aortic Valve: Normal appearance of the aortic valve. No significant aortic stenosis or insufficiency. Tricuspid Valve: Normal appearance of the tricuspid valve. Estimated peak PA systolic pressure 24 mmHg. There is trace tricuspid regurgitation. Pericardium: Normal pericardium with no significant pericardial effusion. Aorta: Normal aortic root. IVC: Dilated IVC with respiratory collapse consistent with elevated right atrial pressure. Conclusions Overall, normal left ventricular systolic function. Not all segments visualized. Normal left ventricular cavity size. Mild concentric left ventricular hypertrophy. Ejection fraction is visually estimated at 60 %. Normal right ventricular size. Normal right ventricular systolic function. The left atrium is normal in size. The right atrium is normal in size. No significant valvular stenosis or regurgitation seen. Normal pericardium with no significant pericardial effusion. Electronically Signed By: Ceferino Up 11-Feb-2017 12:35:24 -0700 Patient Name: KRISTINE GUZMAN Study Date: 11-Feb-2017 [id number]
--- NOTE | 2017-02-11 12:37 | CONS ---
Date/Time of Note Date/Time of Note DATE: 02/11/17 TIME: 12:37 Assessment/Plan Assessment/Plan Additional Assessment/Plan Chest pain, neck pain, headache, abdominal pain and leg pain Preserved ejection fraction Mild acute decompensated diastolic congestive heart failure Hypertension Diabetes Cirrhosis Thrombocytopenia -Patient with multiple areas of pain and discomfort. Serial troponins remain negative, ECG without significant ischemic abnormalities, echocardiogram with preserved ejection fraction. She does have some evidence of volume overload with lower extremity edema etiology is unclear if secondary to decompensated diastolic congestive heart failure versus liver cirrhosis. She does feel better after IV Lasix. Would continue diuretic regimen, blood pressure well controlled. No aspirin secondary to thrombocytopenia at the current time. Her chest discomfort does not appear secondary to cardiac ischemia given atypical symptoms, multiple areas of pain, negative serial cardiac enzymes. Consultation Date/Type/Reason Admit Date/Time Feb 10, 2017 at 18:35 Type of Consultation: cv Reason for Consultation Chest pain Hx of Present Illness This is a 61-year-old female with past medical history of hypertension, diabetes , liver cirrhosis who presents with multiple complaints including headache, shoulder pain, neck pain, chest pain, back pain, leg pain. Pain is been off and on for months. Her chest pain, neck pain and headache has worsened over the past couple days. Pain is worse with moving of the left arm and moving side to side and moving her head. Exertion does not improve or worsen the symptoms. She has intermittent shortness of breath but not associated with chest discomfort. She has intermittent abdominal pain. She has intermittent lower extremity edema. She denies any fevers or chills. Her chest discomfort has improved since her hospitalization but her neck pain, headache, back pain and leg pain continues. 12 point review of systems was performed with all pertinent positives and negatives mentioned above and all else is negative Past Medical History Liver cirrhosis Medical History: diabetes, high cholesterol, hypertension Past Surgical History Past Surgical Hx: no surgical history Social History Alcohol Use: none Smoking Status: Never smoker Drug Use: none Exam/Review of Systems Vital Signs Vitals Vital Signs Date Time Temp Pulse Resp B/P Pulse Ox O2 Delivery O2 Flow Rate FiO2 02/11/17 12:32 79 02/11/17 08:00 98.0 20 122/65 96 Room Air Intake and Output 02/10/17 02/10/17 02/11/17 15:00 23:00 07:00 Intake Total 240 ml Balance 240 ml Exam No apparent distress Constitutional: alert, obese, oriented Head: normocephalic Respiratory: other (Coarse breath sounds bilaterally, no wheezing) Cardiovascular: other (S1-S2 heard), regular rate and rhythm Gastrointestinal: bowel sounds, non-tender, soft Extremities: edema Results Result Diagram: 02/11/17 0728 02/11/17 0728 Results 24 hrs Laboratory Tests Test 02/10/17 17:15 02/10/17 20:53 02/11/17 02:09 02/11/17 07:28 White Blood Count 3.8 L 2.3 #L Red Blood Count 3.95 L 3.97 L Hemoglobin 13.8 13.5 Hematocrit 39.8 39.3 Mean Corpuscular Volume 100.8 99.0 Mean Corpuscular Hemoglobin 34.9 H 34.0 H Mean Corpuscular Hemoglobin Concent 34.7 34.4 Red Cell Distribution Width 13.6 13.6 Platelet Count 82 L 75 L Mean Platelet Volume 12.1 H 12.0 H Neutrophils % 58.6 Lymphocytes % 23.3 Monocytes % 13.3 H Eosinophils % 3.4 Basophils % 1.1 Nucleated Red Blood Cells % 0.0 2 H Neutrophils # 2.2 Lymphocytes # 0.9 Monocytes # 0.5 Eosinophils # 0.1 Basophils # 0.0 Nucleated Red Blood Cells # 0.0 Prothrombin Time 14.8 H Prothrombin Time Ratio 1.2 INR International Normalized Ratio 1.16 Activated Partial Thromboplast Time 30.7 Sodium Level 143 143 Potassium Level 4.1 3.7 Chloride Level 104 108 Carbon Dioxide Level 27 24 Anion Gap 16 15 Blood Urea Nitrogen 12 11 Creatinine 0.56 0.53 Glucose Level 104 84 Calcium Level 9.1 8.9 Total Bilirubin 0.8 1.6 H Direct Bilirubin 0.00 0.00 Indirect Bilirubin 0.8 1.6 H Aspartate Amino Transf (AST/SGOT) 64 H 65 H Alanine Aminotransferase (ALT/SGPT) 59 50 Alkaline Phosphatase 130 H 102 Creatine Kinase 123 114 107 Creatine Kinase Index 0.9 1.0 0.8 Creatinine Kinase MB (Mass) 1.12 1.10 0.88 Troponin I < 0.012 < 0.012 < 0.012 B-Type Natriuretic Peptide 181 H Total Protein 7.5 7.0 Albumin 3.8 3.4 Globulin 3.70 H 3.60 H Albumin/Globulin Ratio 1.02 0.94 Segmented Neutrophils % (Manual) 58 Lymphocytes % (Manual) 23 Monocytes % (Manual) 12 H Eosinophils % (Manual) 3 Basophils % (Manual) 4 H Promyelocytes % (Manual) 1 H Absolute Lymphocytes (Manual) 0.5 L Absolute Monocytes (Manual) 0.2 L Basophils # (Manual) 0.0 Promyelocytes # 0 Smudge Cells % 30 H Thrombocytosis 12 H Platelet Estimate DECREASED Polychromasia 1+ Anisocytosis 1+ Macrocytosis 1+ Hemoglobin A1c 4.9 Magnesium Level 1.8 Triglycerides Level 83 Cholesterol Level 180 LDL Cholesterol, Calculated 111 HDL Cholesterol 52 Cholesterol/HDL Ratio 3.4 Test 02/11/17 08:06 02/11/17 08:07 Ammonia 54 H Creatine Kinase 101 Creatine Kinase Index 0.8 Creatinine Kinase MB (Mass) 0.77 Troponin I < 0.012 Medications Medications Current Medications Ondansetron HCl (Zofran Inj) 4 mg Q6H PRN IV NAUSEA AND/OR VOMITING; Start at 20:30 Acetaminophen (Tylenol Tab) 650 mg Q6H PRN PO PAIN LEVEL 1-3 OR FEVER; Start at 20:30 Pantoprazole (Protonix Iv) 40 mg DAILY@06 IV Last administered on 02/11/17 05: 45; Admin Dose 40 MG; Start 02/11/17 at 06:00 Benazepril HCl (Lotensin) 40 mg DAILY PO Last administered on 02/11/17 08:38; Admin Dose 40 MG; Start 02/11/17 at 09:00 Miscellaneous Information 1 ea NOTE XX ; Start 02/10/17 at 23:00 Glucose (Glutose) 15 gm Q15M PRN PO DECREASED GLUCOSE; Start 02/10/17 at 23:00 Glucose (Glutose) 22.5 gm Q15M PRN PO DECREASED GLUCOSE; Start 02/10/17 at 23: 00 Dextrose (D50w Syringe) 25 ml Q15M PRN IV DECREASED GLUCOSE; Start 02/10/17 at 23:00 Dextrose (D50w Syringe) 50 ml Q15M PRN IV DECREASED GLUCOSE; Start 02/10/17 at 23:00 Glucagon (Glucagen) 1 mg Q15M PRN IM DECREASED GLUCOSE; Start 02/10/17 at 23:00 Glucose (Glutose) 15 gm Q15M PRN BUCCAL DECREASED GLUCOSE; Start 02/10/17 at 23 :00 Ceferino Up DO Feb 11, 2017 12:37
[2017-02-11] MEDS ORDERED: FUROSEMIDE 20 MG INJ IV ONE (13:00)
--- NOTE | 2017-02-11 17:08 | PN ---
Date/Time of Note Date/Time of Note DATE: 02/11/17 TIME: 17:00 Assessment/Plan VTE Prophylaxis VTE Prophylaxis Intervention: SCD's Lines/Catheters IV [facility] Saline Lock Urinary Cath still in place: No Assessment/Plan Assessment/Plan 61 yo F with cirrhosis of unclear etiology admitted for chest pain unlikely cardiac in origin per cardiac. TTE with normal EF. Cont dieretic (possibly 2/2 cirrhosis) check hepatitis b/c serologies if feels well tomorrow, likely DC in AM Subjective 24 Hr Interval Summary Free Text/Dictation Chest discomfort unlikely cardiac in origin per cardiology. pt reports the etiology of her liver failure is unknown Exam/Review of Systems Vital Signs Vitals Vital Signs Date Time Temp Pulse Resp B/P Pulse Ox O2 Delivery O2 Flow Rate FiO2 02/11/17 16:04 66 02/11/17 08:00 98.0 20 122/65 96 Room Air Intake and Output 02/10/17 02/10/17 02/11/17 15:00 23:00 07:00 Intake Total 240 ml Balance 240 ml Exam nad, laying in bed no mrg lungs clear +abd soft no le edema Results Result Diagram: 02/11/1728 02/11/17727 Results 24 hrs Laboratory Tests Test 02/10/17 17:15 02/10/17 20:53 02/11/17 02:09 02/11/17 07:28 White Blood Count 3.8 L 2.3 #L Red Blood Count 3.95 L 3.97 L Hemoglobin 13.8 13.5 Hematocrit 39.8 39.3 Mean Corpuscular Volume 100.8 99.0 Mean Corpuscular Hemoglobin 34.9 H 34.0 H Mean Corpuscular Hemoglobin Concent 34.7 34.4 Red Cell Distribution Width 13.6 13.6 Platelet Count 82 L 75 L Mean Platelet Volume 12.1 H 12.0 H Neutrophils % 58.6 Lymphocytes % 23.3 Monocytes % 13.3 H Eosinophils % 3.4 Basophils % 1.1 Nucleated Red Blood Cells % 0.0 2 H Neutrophils # 2.2 Lymphocytes # 0.9 Monocytes # 0.5 Eosinophils # 0.1 Basophils # 0.0 Nucleated Red Blood Cells # 0.0 Prothrombin Time 14.8 H Prothrombin Time Ratio 1.2 INR International Normalized Ratio 1.16 Activated Partial Thromboplast Time 30.7 Sodium Level 143 143 Potassium Level 4.1 3.7 Chloride Level 104 108 Carbon Dioxide Level 27 24 Anion Gap 16 15 Blood Urea Nitrogen 12 11 Creatinine 0.56 0.53 Glucose Level 104 84 Calcium Level 9.1 8.9 Total Bilirubin 0.8 1.6 H Direct Bilirubin 0.00 0.00 Indirect Bilirubin 0.8 1.6 H Aspartate Amino Transf (AST/SGOT) 64 H 65 H Alanine Aminotransferase (ALT/SGPT) 59 50 Alkaline Phosphatase 130 H 102 Creatine Kinase 123 114 107 Creatine Kinase Index 0.9 1.0 0.8 Creatinine Kinase MB (Mass) 1.12 1.10 0.88 Troponin I < 0.012 < 0.012 < 0.012 B-Type Natriuretic Peptide 181 H Total Protein 7.5 7.0 Albumin 3.8 3.4 Globulin 3.70 H 3.60 H Albumin/Globulin Ratio 1.02 0.94 Segmented Neutrophils % (Manual) 58 Lymphocytes % (Manual) 23 Monocytes % (Manual) 12 H Eosinophils % (Manual) 3 Basophils % (Manual) 4 H Promyelocytes % (Manual) 1 H Absolute Lymphocytes (Manual) 0.5 L Absolute Monocytes (Manual) 0.2 L Basophils # (Manual) 0.0 Promyelocytes # 0 Smudge Cells % 30 H Thrombocytosis 12 H Platelet Estimate DECREASED Polychromasia 1+ Anisocytosis 1+ Macrocytosis 1+ Hemoglobin A1c 4.9 Magnesium Level 1.8 Triglycerides Level 83 Cholesterol Level 180 LDL Cholesterol, Calculated 111 HDL Cholesterol 52 Cholesterol/HDL Ratio 3.4 Test 02/11/17 08:06 02/11/17 08:07 Ammonia 54 H Creatine Kinase 101 Creatine Kinase Index 0.8 Creatinine Kinase MB (Mass) 0.77 Troponin I < 0.012 Medications Medications Current Medications Ondansetron HCl (Zofran Inj) 4 mg Q6H PRN IV NAUSEA AND/OR VOMITING; Start at 20:30 Acetaminophen (Tylenol Tab) 650 mg Q6H PRN PO PAIN LEVEL 1-3 OR FEVER; Start at 20:30 Pantoprazole (Protonix Iv) 40 mg DAILY@06 IV Last administered on 02/11/17 05: 45; Admin Dose 40 MG; Start 02/11/17 at 06:00 Benazepril HCl (Lotensin) 40 mg DAILY PO Last administered on 02/11/17 08:38; Admin Dose 40 MG; Start 02/11/17 at 09:00 Miscellaneous Information 1 ea NOTE XX ; Start 02/10/17 at 23:00 Glucose (Glutose) 15 gm Q15M PRN PO DECREASED GLUCOSE; Start 02/10/17 at 23:00 Glucose (Glutose) 22.5 gm Q15M PRN PO DECREASED GLUCOSE; Start 02/10/17 at 23: 00 Dextrose (D50w Syringe) 25 ml Q15M PRN IV DECREASED GLUCOSE; Start 02/10/17 at 23:00 Dextrose (D50w Syringe) 50 ml Q15M PRN IV DECREASED GLUCOSE; Start 02/10/17 at 23:00 Glucagon (Glucagen) 1 mg Q15M PRN IM DECREASED GLUCOSE; Start 02/10/17 at 23:00 Glucose (Glutose) 15 gm Q15M PRN BUCCAL DECREASED GLUCOSE; Start 02/10/17 at 23 :00 Furosemide (Lasix) 40 mg DAILY PO ; Start 02/12/17 at 09:00 MARCI RAMOS MD Feb 11, 2017 17:08
[2017-02-11] MEDS: SPIRONOLACTONE 25 MG TAB PO SCH (17:10)
[2017-02-11 18:27] LABS: HEPATITIS B CORE ANTIBODY NEGATIVE (NEGATIVE)
[2017-02-11] MEDS: ACETAMINOPHEN 325 MG TAB PO PRN (20:29)
[2017-02-12 02:00] VITALS: BP 104/50; RESP 20
[2017-02-12] MEDS: SPIRONOLACTONE 25 MG TAB PO SCH (06:01)
[2017-02-12] MEDS: ACETAMINOPHEN 325 MG TAB PO PRN (06:09)
[2017-02-12 06:10] LABS: ABNORMAL IP MESSAGE 1; BASOPHILS % 1.3 % (0.0-2.0); EOSINOPHILS # 0.1 10^3/ul (0.0-0.5); EOSINOPHILS % 3.8 % (0.0-7.0); HEMATOCRIT 43.1 % (37.0-47.0); HEMOGLOBIN 14.4 g/dl (12.0-16.0); LYMPHOCYTES # 0.9 10^3/ul (0.8-2.9); LYMPHOCYTES % 27.8 % (15.0-51.0); MEAN CORPUSCULAR HEMOGLOBIN 33.5 pg (29.0-33.0); MEAN CORPUSCULAR HGB CONC 33.4 g/dl (32.0-37.0); MEAN CORPUSCULAR VOLUME 100.2 fl (82.0-101.0); MEAN PLATELET VOLUME 12.7 fl (7.4-10.4); MONOCYTE # 0.4 10^3/ul (0.3-0.9); MONOCYTES % 13.1 % (0.0-11.0); NEUTROPHIL # 1.7 10^3/ul (1.6-7.5); NEUTROPHILS % 53.7 % (39.0-77.0); PLATELET COUNT 82 10^3/UL (140-415); RED CELL DISTRIBUTION WIDTH 13.7 % (11.5-14.5); WHITE BLOOD COUNT 3.2 10^3/ul (4.8-10.8)
[2017-02-12 06:12] LABS: POSITIVE DIFF @See below
[2017-02-12 06:36] LABS: CALCIUM 9.2 mg/dl (8.4-10.2); CREATININE 0.67 mg/dl (0.44-1.00)
[2017-02-12] MEDS: ALBUTEROL 18 GM INHALER INH SCH ×3 (08:00→14:00)
[2017-02-12 08:03] VITALS: BP 126/59; RESP 18
[2017-02-12] MEDS ORDERED: FUROSEMIDE 40 MG TAB PO SCH (09:00)
[2017-02-12] MEDS: glipiZIDE 5 MG TAB PO SCH (09:16)
[2017-02-12] MEDS: BENAZEPRIL 40 MG TAB PO SCH (09:16)
--- NOTE | 2017-02-12 14:22 | PDOCDIS ---
Discharge Instructions CONDITION Patient Condition: Stable HOME CARE INSTRUCTIONS: Diet Instructions: Low Fat /Cholesterol FOLLOW UP/APPOINTMENTS Follow-up Plan 1.Follow up with primary care physician in 1 week If you don't have one please let someone know, we can give you resources that may help you pick one. You may also call your insurance company to assign one to you. Review your medication list with your nurse before leaving and if you need new prescriptions please let your nurse know. I may have made changes to your home medications or given you new prescriptions, please let your primary doctor know as well. Stay compliant with your medications and report any side effects to your PCP or pharmacist. Return to the ER if you have any concerns and cannot reach your doctors or call your insurance company, they usually have a nurse that can help you. HUMBLE STANTON NP Feb 12, 2017 14:22
[2017-02-12] MEDS ORDERED: FURO40TA4 PO (14:24)
[2017-02-12] MEDS ORDERED: SPIR25TA PO (14:24)
[2017-02-12] MEDS ORDERED: ACET325T40 PO (14:28)
[2017-02-12 14:58] VITALS: BP 121/56; RESP 18
--- NOTE | 2017-02-12 15:25 | DS ---
Date/Time of Note Date/Time of Note DATE: 02/12/17 TIME: 15:20 Discharge Summary Admission/Discharge Info Admit Date/Time Feb 10, 2017 at 18:35 Discharge Date/Time Discharge Diagnosis Chest pain, noncardiac. Resolved. ACS ruled out. Mild acute decompensated diastolic congestive heart failure Hypertension Diabetes, type II Liver cirrhosis Anemia/thrombocytopenia from liver cirrhosis. Patient Condition: Stable Consults Dr. Up, cardiology Procedures 02/10/2017. Chest x-ray. Findings suggesting mild congestive heart failure with cardiomegaly, pulmonary vascular congestion and interstitial edema. 02/11/2017. 2D echocardiogram Overall, normal left ventricular systolic function. Not all segments visualized. Normal left ventricular cavity size. Mild concentric left ventricular hypertrophy. Ejection fraction is visually estimated at 60 %. Hospital Course This is a 61-year-old obese morbidly obese female with a past medical history of type 2 diabetes, hypertension, liver cirrhosis, who presented to the emergency room with the main complaint of having chest pain with occasional lower extremity swelling and difficulty breathing especially after walking on and off. She also had multiple complaints including generalized body pain, leg pain, abdominal discomfort etc. She denied any fever or chills. Patient denied any bleeding episodes. Patient denied any loss of consciousness, dizziness, nausea, vomiting shortness of breath or other constitutional symptoms. Her initial troponin was negative. Initial labs with elevated AST, slightly elevated AST and alkaline phosphatase. Platelet 82,000. Otherwise unremarkable labs. Chest x-ray with mild congestive heart failure with cardiomegaly, pulmonary vascular congestion and interstitial edema. Patient was admitted for further evaluation. Patient was continued on home medications including OLIVIA inhibitors, statin and diabetic agents. Patient continued to have multiple areas of discomfort. She was evaluated by security tester. ACS ruled out with negative troponins, EKG, echocardiogram. However, patient seemed to have volume overload likely secondary to diastolic congestive heart failure versus liver cirrhosis and was treated with Lasix IV. Patient was not a candidate for aspirin due to thrombocytopenia. Her symptoms improved significantly with Lasix. 2D echocardiogram with EF 60%. Serology was negative for hepatitis panel. Patient was able to tolerate diet and activities well. Labs remained stable. Vital signs remained stable. There was no further complaints of chest pain. At this time, there is no further inpatient workup indicated and patient is medically stable for discharge on Lasix with primary care follow-up. Disposition: Patient will be discharged home with outpatient follow-up. On day of discharge, patient vital signs and labs remains within acceptable range. Condition at time of discharge is stable. Approximately 60 minutes was spent in coordinating the discharge on this patient. Case discussed with Dr.Rahi Leal [place] Active Scripts Acetaminophen (MAPAP) 325 Mg Tablet, 650 MG PO Q6H Y for PAIN LEVEL 1-3 OR FEVER , #60 TAB Prov:STANTON,HUMBLE V. DIAMOND POLISHER 02/12/17 Furosemide* (Furosemide*) 40 Mg Tablet, 40 MG PO DAILY, #30 TAB Prov:STANTON,HUMBLE V. DIAMOND POLISHER 02/12/17 Spironolactone* (Aldactone*) 25 Mg Tablet, 12.5 MG PO BID DIURETICS, #60 TAB Prov:STANTON,HUMBLE V. DIAMOND POLISHER 02/12/17 Reported Medications Glipizide* (Glipizide*) 5 Mg Tablet, 5 MG PO BID, TAB 02/10/17 Albuterol Sulfate* (Proair HFA*) 8.5 Gm Hfa.aer.ad, 2 PUFF INH Q6, #1 INHALER 02/10/17 Omeprazole* (Omeprazole*) 20 Mg Capsule.dr, 20 MG PO BID, #60 CAP 06/23/16 Metformin Hcl* (Metformin Hcl*) 500 Mg Tablet, 500 MG PO WITH BREAKFAST DINNE, # 60 TAB 06/23/16 Benazepril Hcl* (Benazepril Hcl*) 20 Mg Tablet, 40 MG PO DAILY, #30 TAB 06/23/16 Discontinued Reported Medications Ciprofloxacin Hcl* (Ciprofloxacin Hcl*) 500 Mg Tablet, 500 MG PO Q12, #14 TAB 06/23/16 Naproxen* (Naproxen*) 500 Mg Tablet, 500 MG PO BID, TAB 06/23/16 Discontinued Scripts Sodium Chloride (Saline Nasal [place]) 30 Ml [place], 30 ML NS BID for 14 Days, SPRAY Prov:MANNY COOPER PA-C 11/13/16 Naproxen* (Naprosyn*) 500 Mg Tablet, 500 MG PO BID Y for PAIN AND/OR INFLAMMATION, #30 TAB Prov:MANNY COOPER PA-C 11/13/16 Ondansetron Hcl* (Zofran*) 4 Mg Tablet, 4 MG PO Q6H for NAUSEA AND/OR VOMITING, #12 TAB Prov:TARA,HEBERT B. MD 06/23/16 Pantoprazole* (Protonix*) 40 Mg Tablet.dr, 40 MG PO DAILY, #20 TAB Prov:HEBERT PACHECO MD 06/23/16 Tramadol HCl (Tramadol HCl) 50 Mg Tablet, 50 MG PO Q6 Y for PAIN, #12 TAB Prov:HEBERT PACHECO MD 06/23/16 Follow-up Plan HOME CARE INSTRUCTIONS: Diet Instructions: Low Fat /Cholesterol FOLLOW UP/APPOINTMENTS Follow-up Plan 1.Follow up with primary care physician in 1 week If you don't have one please let someone know, we can give you resources that may help you pick one. You may also call your insurance company to assign one to you. Review your medication list with your nurse before leaving and if you need new prescriptions please let your nurse know. I may have made changes to your home medications or given you new prescriptions, please let your primary doctor know as well. Stay compliant with your medications and report any side effects to your PCP or pharmacist. Return to the ER if you have any concerns and cannot reach your doctors or call your insurance company, they usually have a nurse that can help you. Primary Care Provider Magdiel Diaz Pending Labs Laboratory Tests Test 02/11/17 17:09 02/12/17 05:04 Bedside Glucose 89mg/dL (70-220) White Blood Count 3.210^3/ul (4.8-10.8) Red Blood Count 4.3010^6/ul (4.20-5.40) Hemoglobin 14.4g/dl (12.0-16.0) Hematocrit 43.1% (37.0-47.0) Mean Corpuscular Volume 100.2fl (82.0-101.0) Mean Corpuscular Hemoglobin 33.5pg (29.0-33.0) Mean Corpuscular Hemoglobin Concent 33.4g/dl (32.0-37.0) Red Cell Distribution Width 13.7% (11.5-14.5) Platelet Count 8210^3/UL (140-415) Mean Platelet Volume 12.7fl (7.4-10.4) Neutrophils % 53.7% (39.0-77.0) Lymphocytes % 27.8% (15.0-51.0) Monocytes % 13.1% (0.0-11.0) Eosinophils % 3.8% (0.0-7.0) Basophils % 1.3% (0.0-2.0) Nucleated Red Blood Cells % 0.0/100WBC (0.0-0.0) Neutrophils # 1.710^3/ul (1.6-7.5) Lymphocytes # 0.910^3/ul (0.8-2.9) Monocytes # 0.410^3/ul (0.3-0.9) Eosinophils # 0.110^3/ul (0.0-0.5) Basophils # 0.010^3/ul (0.0-0.1) Nucleated Red Blood Cells # 0.010^3/ul (0.0-0.0) Sodium Level 144mmol/L (135-144) Potassium Level 4.0mmol/L (3.5-5.1) Chloride Level 104mmol/L (97-110) Carbon Dioxide Level 26mmol/L (21-31) Anion Gap 18 (8-16) Blood Urea Nitrogen 13mg/dl (7-20) Creatinine 0.67mg/dl (0.44-1.00) Glucose Level 76mg/dl (70-220) Calcium Level 9.2mg/dl (8.4-10.2) Magnesium Level 1.9mg/dl (1.7-2.5) HUMBLE STANTON NP Feb 12, 2017 15:25
== END 2017-02-12 17:03 | disposition home or self-care (01) | DRG 293 ==
LOC: E/R 16:30 → MS4 18:35 → PP2 02-11 22:15
PROVIDERS: ADMIT Family Medicine; ATTEND Family Medicine
DX: I11.0 Hypertensive heart disease with heart failure (principal); D69.59 Other secondary thrombocytopenia; K74.60 Unspecified cirrhosis of liver; I50.33 Acute on chronic diastolic (congestive) heart failure; D69.6 Thrombocytopenia, unspecified; R07.89 Other chest pain; I51.7 Cardiomegaly; E78.5 Hyperlipidemia, unspecified; E11.9 Type 2 diabetes mellitus without complications; E66.01 Morbid (severe) obesity due to excess calories; Z68.39 Body mass index [BMI] 39.0-39.9, adult; Z71.3 Dietary counseling and surveillance; Z79.84 Long term (current) use of oral hypoglycemic drugs
CPT/HCPCS: 71010; 80048; 80053; 80061; 82140; 82550; 82553; 82962; 83036; 83735; 83880; 84484; 85025; 85610; 85730; 86704; 86706; 86803; 87340; 93005; 93306; J1940; C9113

== ENCOUNTER 2017-02-18 06:56 | Emergency (ER) | payer MEDICAID ==
[~2017-02-18] VITALS: Wt 104.0 kg
[~2017-02-18 06:56] MED LIST changes: +ACET325T40 PO; +ALBU8.5H3 INH; -CIPR500T4 PO; +FURO40TA4 PO; +GLIP5TAB13 PO; -NAPR-260 PO; -NAPR-688 PO; -ONDA4TAB8 PO; -PANT40TA3 PO; -SODI30SP2 NS; +SPIR25TA PO; -TRAM50TA2 PO
--- NOTE | 2017-02-18 07:07 | ERD ---
ER Documentation Chief Complaint Date/Time DATE: 02/18/17 TIME: 07:05 Chief Complaint right leg pain, numbness, no injury HPI 61-year-old female history of diabetes, hypertension presents with 2 day history of numbness to her right thigh, right hip pain, and also complains of foul-smelling urine for the past day. She states that the pain started suddenly , without any history of impact or trauma. The pain is radiating and it feels like a stabbing sensation in her right upper thigh going to her knee. There is no associated saddle anesthesia, low back pain or loss of bowel bladder function. She has not had any fevers, chills, nausea, vomiting. ROS All systems reviewed and are negative except as per history of present illness. Medications Home Meds Active Scripts Tramadol HCl (Tramadol HCl) 50 Mg Tablet, 50 MG PO Q4 Y for PAIN, #20 TAB Prov:DRE SHORE PA-C 02/18/17 Nitrofurantoin Monohyd Macrocr* (Macrobid*) 100 Mg Capsr, 100 MG PO BID for 7 Days, CAP Prov:DRE SHORE PA-C 02/18/17 Acetaminophen (MAPAP) 325 Mg Tablet, 650 MG PO Q6H Y for PAIN LEVEL 1-3 OR FEVER , #60 TAB Prov:HUMBLE STANTON V. AMERICAN SIGN LANGUAGE INTERPRETER 02/12/17 Furosemide* (Furosemide*) 40 Mg Tablet, 40 MG PO DAILY, #30 TAB Prov:HUMBLE STANTON V. [employer] SIGN LANGUAGE INTERPRETER 02/12/17 Spironolactone* (Aldactone*) 25 Mg Tablet, 12.5 MG PO BID DIURETICS, #60 TAB Prov:HUMBLE STANTON V. AMERICAN SIGN LANGUAGE INTERPRETER 02/12/17 Reported Medications Glipizide* (Glipizide*) 5 Mg Tablet, 5 MG PO BID, TAB 02/10/17 Albuterol Sulfate* (Proair HFA*) 8.5 Gm Hfa.aer.ad, 2 PUFF INH Q6, #1 INHALER 02/10/17 Omeprazole* (Omeprazole*) 20 Mg Capsule.dr, 20 MG PO BID, #60 CAP 06/23/16 Metformin Hcl* (Metformin Hcl*) 500 Mg Tablet, 500 MG PO WITH BREAKFAST DINNE, # 60 TAB 06/23/16 Benazepril Hcl* (Benazepril Hcl*) 20 Mg Tablet, 40 MG PO DAILY, #30 TAB 06/23/16 Allergies Allergies: Coded Allergies: No Known Allergies (Verified Allergy, Mild, 02/18/17) PMhx/Soc History of Surgery: No Anesthesia Reaction: No Hx Neurological Disorder: No Hx Respiratory Disorders: No Hx Cardiac Disorders: Yes (High cholesteroll,HTN) Hx Psychiatric Problems: No Hx Miscellaneous Medical Probl: Yes (Liver cirrohsis) Hx Alcohol Use: No Hx Substance Use: No Hx Tobacco Use: No Physical Exam Vitals Vital Signs Date Time Temp Pulse Resp B/P Pulse Ox O2 Delivery O2 Flow Rate FiO2 02/18/17 06:58 97.1 74 18 133/58 98 Physical Exam General: Well-developed, well-nourished. The patient appears in no acute distress. HEENT: Head is normocephalic, atraumatic. No scleral icterus. Neck: Supple. Nontender. Lungs: Clear to auscultation. Normal air movement. Heart: Regular rate and rhythm. S1 and S2 are normal. No murmurs, gallops, or rubs. Abdomen: Soft, nontender, nondistended. Bowel sounds are normoactive. Extremities: Full R OM of the right hip, gait is intact. No rashes. Strength to lower extremities 5 out of 5 bilaterally. Pulses 2+ at DP bilaterally Neurologic: Alert and oriented 3. No focal deficits. Skin: Normal turgor. No rash or lesions. Results 24 hrs Laboratory Tests Test 02/18/17 07:05 Urine Color YELLOW Urine Clarity SLIGHTLY CLOUDY Urine pH 5.0 Urine Specific [place] 1.019 Urine Ketones NEGATIVEmg/dL Urine Nitrite POSITIVEmg/dL Urine Bilirubin NEGATIVEmg/dL Urine Urobilinogen NEGATIVEmg/dL Urine Leukocyte Esterase NEGATIVELeu/ul Urine Microscopic RBC 4/HPF Urine Microscopic WBC 4/HPF Urine Squamous Epithelial Cells FEW/HPF Urine Bacteria FEW/HPF Urine Mucus FEW/HPF Urine Hemoglobin 2+mg/dL Urine Glucose NEGATIVEmg/dL Urine Total Protein NEGATIVEmg/dl DIAGNOSTIC IMAGING REPORT Patient: KRISTINE GUZMAN : 1955 Age: 61 Sex: F MR #: [id number] DOS: 02/18/17 0703 Ordering MD: DRE SHORE PA-C Location: [facility] Room/Bed: PROCEDURE: US DVT. CLINICAL INDICATION: Right lower extremity pain and swelling. TECHNIQUE: Multiple longitudinal and transverse images of the right lower extremity veins were obtained with matt scale and color Doppler imaging. 2D grayscale measurements with compression, color Doppler flow, and augmentation was performed. The calf veins were interrogated as well. COMPARISON: 01/12/2016 FINDINGS: The right common femoral, superficial femoral and popliteal veins are normally compressible throughout. Color flow demonstrates normal filling of the vessel. Normal waveforms are visualized and there is normal response to augmentation. The calf veins are visualized and are equally unremarkable. RPTAT: EE IMPRESSION: 1. No evidence of a deep vein thrombosis. .Hortensia Santamaria MD, MD Date Time Electronically viewed and signed by .Hortensia Santamaria MD, on 02/18/2017 08: 17 .T/ CC: DRE SHORE PA-C Procedures/MDM MDM: 61-year-old female presents with right hip pain, right leg numbness, and foul-smelling urine. Patient presents with peripheral neuropathy, differentials considered but are not limited to cauda equina, lumbar radiculopathy, sciatica, tendinitis, hip arthritis, and among others. Patient' s x-rays of the right hip show arthritis, no acute fracture dislocation. Her gait is intact, and she does not present with any limb threatening process. No evidence of DVT on Doppler today. Also she presents with a urinary tract infection with positive nitrite urine, and will be treated with antibiotics. She is afebrile, nontoxic appearing and stable to be discharged and managed on p.o. antibiotics. Patient's blood pressure was elevated (>120/80) but appears stable without evidence of hypertension emergency or urgency. The patient was counseled about the risks of hypertension and urged to pursue outpatient monitoring and therapy within a week with their primary care physician. Departure Diagnosis: Primary Impression: Pain of right leg Additional Impression: UTI (urinary tract infection) Condition: Good DRE SHORE PA-C Feb 18, 2017 07:07
[2017-02-18 07:36] LABS: ADD UMIC YES; UR ASCORBIC ACID NEGATIVE (NEGATIVE); UR BACTERIA FEW /HPF (NONE SEEN); UR BILIRUBIN (Dip) NEGATIVE (NEGATIVE); UR BLOOD (Dip) 2+ mg/dL (NEGATIVE); UR CLARITY SLIGHTLY CLOUDY (CLEAR); UR COLOR YELLOW (YELLOW); UR GLUCOSE (Dip) NEGATIVE (NEGATIVE); UR KETONES (Dip) NEGATIVE (NEGATIVE); UR LEUKOCYTE ESTERASE (Dip) NEGATIVE Leu/ul (NEGATIVE); UR MUCUS FEW /HPF (NONE SEEN); UR NITRITE (Dip) POSITIVE (NEGATIVE); UR RBC 4 /HPF (0-5); UR SPECIFIC GRAVITY (Dip) 1.019 (1.003-1.030); UR SQUAMOUS EPITHELIAL CELL FEW /HPF (FEW); UR TOTAL PROTEIN (Dip) NEGATIVE (NEGATIVE); UR UROBILINOGEN (Dip) NEGATIVE (NEGATIVE)
--- NOTE | 2017-02-18 07:57 | RADRPT ---
PROCEDURE: Right hip series CLINICAL INDICATION: Pain TECHNIQUE: AP and frog lateral views of the right hip were performed. COMPARISON: None. FINDINGS: There is no evidence of acute fractures or dislocations. There is mild degenerate joint disease rig ht hip. Bony mineralization is normal without focal bony blastic or lytic lesions. There is soft-t issue dystrophic calcifications. 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 RPTAT:AAJJ Physician Rojelio Date Time Electronically viewed and signed by Dax Schmidt Physician on 02/18/2017 07:56 /
--- NOTE | 2017-02-18 08:12 | RADRPT ---
PROCEDURE: US DVT. CLINICAL INDICATION: Right lower extremity pain and swelling. TECHNIQUE: Multiple longitudinal and transverse images of the right lower extremity veins were obt ained with matt scale and color Doppler imaging. 2D grayscale measurements with compression, color Doppler flow, and augmentation was performed. The calf veins were interrogated as well. COMPARISON: 01/12/2016 FINDINGS: The right common femoral, superficial femoral and popliteal veins are normally compressible througho ut. Color flow demonstrates normal filling of the vessel. Normal waveforms are visualized and ther e is normal response to augmentation. The calf veins are visualized and are equally unremarkable. RPTAT: EE IMPRESSION: 1. No evidence of a deep vein thrombosis. .Hortensia Santamaria MD, MD Date Time Electronically viewed and signed by .Hortensia Santamaria MD, on 02/18/2017 08:17 .T/
[2017-02-18] MEDS ORDERED: NITR-58 PO (08:15)
[2017-02-18] MEDS ORDERED: TRAM50TA2 PO (08:15)
== END 2017-02-18 08:25 | disposition home or self-care (01) ==
LOC: FTE 06:56
DX: M79.604 Pain in right leg (principal); N39.0 Urinary tract infection, site not specified; I10 Essential (primary) hypertension; E11.9 Type 2 diabetes mellitus without complications; Z79.84 Long term (current) use of oral hypoglycemic drugs
CPT/HCPCS: 73510; 81001; 93971

== ENCOUNTER 2017-03-22 19:57 | Emergency (ER) | payer MEDICAID ==
[~2017-03-22] VITALS: Ht 160 cm; Wt 104.0 kg
[~2017-03-22 19:57] MED LIST changes: +NITR-58 PO; +TRAM50TA2 PO
[2017-03-22 20:05] VITALS: Ht 160 cm; Wt 104.0 kg
[2017-03-22] MEDS ORDERED: CEPH-443 PO (21:34)
[2017-03-22] MEDS ORDERED: SULF1TAB31 PO (21:34)
[2017-03-22] MEDS ORDERED: CEPHALEXIN 500 MG CAP PO ONE (22:00)
[2017-03-22] MEDS ORDERED: TRIMETHOPRIM/SULFAMETHOX (DS) TAB PO ONE (22:00)
--- NOTE | 2017-03-22 22:39 | ERD ---
ER Documentation Chief Complaint Date/Time DATE: 03/22/17 TIME: 22:36 Chief Complaint pt bib self with c/o "wound to back since yesterday with pain and drainage HPI This is a 61-year-old f with history of diabetes type 2 emale presenting to the emergency department complaining of a draining wound on her right lateral chest since yesterday. Patient states it is very painful. She denies any current fevers. She states that tramadol for pain ROS All systems reviewed and are negative except as per history of present illness. Medications Home Meds Active Scripts Sulfamethoxazole/Trimethoprim* (Bactrim Ds* Tablet) 1 Each Tablet, 1 TAB PO BID , #20 TAB Prov:SOPHIE ALDRIDGE PA-C 03/22/17 Cephalexin* (Keflex*) 500 Mg Capsule, 500 MG PO QID for 10 Days, CAP Prov:SOPHIE ALDRIDGE PA-C 03/22/17 Tramadol HCl (Tramadol HCl) 50 Mg Tablet, 50 MG PO Q4 Y for PAIN, #20 TAB Prov:DRE SHORE PA-C 02/18/17 Nitrofurantoin Monohyd Macrocr* (Macrobid*) 100 Mg Capsr, 100 MG PO BID for 7 Days, CAP Prov:DRE SHORE PA-C 02/18/17 Acetaminophen (MAPAP) 325 Mg Tablet, 650 MG PO Q6H Y for PAIN LEVEL 1-3 OR FEVER , #60 TAB Prov:HUMBLE STANTON V. KEY BED INSTALLER 02/12/17 Furosemide* (Furosemide*) 40 Mg Tablet, 40 MG PO DAILY, #30 TAB Prov:HUMBLE STANTON V. KEY BED INSTALLER 02/12/17 Spironolactone* (Aldactone*) 25 Mg Tablet, 12.5 MG PO BID DIURETICS, #60 TAB Prov:STANTONANGELAA Malathi KEY BED INSTALLER 02/12/17 Reported Medications Glipizide* (Glipizide*) 5 Mg Tablet, 5 MG PO BID, TAB 02/10/17 Albuterol Sulfate* (Proair HFA*) 8.5 Gm Hfa.aer.ad, 2 PUFF INH Q6, #1 INHALER 02/10/17 Omeprazole* (Omeprazole*) 20 Mg Capsule.dr, 20 MG PO BID, #60 CAP 06/23/16 Metformin Hcl* (Metformin Hcl*) 500 Mg Tablet, 500 MG PO WITH BREAKFAST DINNE, # 60 TAB 06/23/16 Benazepril Hcl* (Benazepril Hcl*) 20 Mg Tablet, 40 MG PO DAILY, #30 TAB 06/23/16 Allergies Allergies: Coded Allergies: No Known Allergies (Verified Allergy, Mild, 02/18/17) PMhx/Soc Medical and Surgical Hx: pt denies Surgical Hx History of Surgery: No Anesthesia Reaction: No Hx Neurological Disorder: No Hx Respiratory Disorders: No Hx Cardiac Disorders: Yes (High cholesteroll,HTN) Hx Psychiatric Problems: No Hx Miscellaneous Medical Probl: Yes (Liver cirrohsis , dm ) Hx Alcohol Use: No Hx Substance Use: No Hx Tobacco Use: No Smoking Status: Never smoker Physical Exam Vitals Vital Signs Date Time Temp Pulse Resp B/P Pulse Ox O2 Delivery O2 Flow Rate FiO2 03/22/17 20:05 98.9 87 16 157/88 99 Physical Exam General: WD/WN, in no apparent distress, non-toxic appearing HENT: NC/AT Eyes: Conjunctiva normal Neck: Supple Pulm: Clear to auscultation, normal labored breathing; no wheezing/rales/ rhonchi heard CV: Good capillary refill GI: Non-distended, no guarding Back: No masses Ext: No clubbing, cyanosis, or edema Neuro: Moves on all fours Skin: Erythematous indurated patch on the right lateral chest with a small indurated papule that is draining Normal turgor, color, and temperature. No ulcerations or rashes noted. Psych: Normal mood Results 24 hrs Current Medications Medications (Trade) Dose Ordered Sig/Sim Route PRN Reason Start Time Stop Time Status Last Admin Dose Admin Cephalexin (Keflex) 500 mg ONCE ONCE PO 03/22/17 22:00 03/22/17 22:01 DC 03/22/17 21:41 Trimethoprim/ Sulfamethoxazole (Bactrim (Ds)) 1 tab ONCE ONCE PO 03/22/17 22:00 03/22/17 22:01 DC 03/22/17 21:41 Procedures/MDM This is 7-year-old female history of diabetes type 2 presents with abscess and cellulitis since yesterday. There was no evidence of lymphangitis, necrotizing fasciitis. Abscess is draining however it is very small and indurated therefore no further incision and drainage was necessary. Patient was given prescription for Keflex and Bactrim, first dose was given in the ED. I discussed to return in 2 days for wound check. Discussed return to the ER for any worsening sinus symptoms. Patient understands and agrees with this plan Departure Diagnosis: Primary Impression: Abscess Additional Impression: Cellulitis Condition: Stable Patient Instructions: Cellulitis, Abscess, Antiobiotic Treatment Only Additional Instructions: Visite a villanueva mdico dony para un EXAMEN.Regrese a estas instalaciones si no se mejora ang esperbamos o ang le dijimos. WOUND CHECK:CONSULTE A VILLANUEVA MDICO EN 2 ramsay para chely VILLANUEVA HERIDA. [place] toda la medicina shira y ang se le indic. Regrese a estas instalaciones si no se mejora ang esperbamos o ang le dijimos. SOPHIE ALDRIDGE PA-C Mar 22, 2017 22:39
== END 2017-03-22 22:04 | disposition home or self-care (01) ==
LOC: FTE 19:57
DX: L02.213 Cutaneous abscess of chest wall (principal); L03.313 Cellulitis of chest wall; I10 Essential (primary) hypertension; E11.9 Type 2 diabetes mellitus without complications; Z79.84 Long term (current) use of oral hypoglycemic drugs
CPT/HCPCS: Z7502; Z7610; 99284

== ENCOUNTER 2017-05-14 12:02 | Emergency (ER) | payer MEDICAID ==
[~2017-05-14] VITALS: Ht 152.4 cm; Wt 104.0 kg
[~2017-05-14 12:02] MED LIST changes: +CEPH-443 PO; +SULF1TAB31 PO
[2017-05-14 12:21] VITALS: Ht 152.4 cm; Wt 104.0 kg
[2017-05-14] MEDS ORDERED: IPRATROPIUM (NEB) 0.5 MG/2.5 ML AMP INH STA (13:47)
[2017-05-14] MEDS ORDERED: predniSONE 20 MG TAB PO STA (13:47)
[2017-05-14] MEDS ORDERED: ALBUTEROL 0.5% (NEB) 2.5 MG/0.5 ML AMP INH STA (13:47)
--- NOTE | 2017-05-14 13:52 | ERD ---
ER Documentation Chief Complaint Chief Complaint flu like symptoms x 2 week HPI Is a 61-year-old female presents to the emergency department today complaining of cough and difficulty breathing for the past 10 days. States that she went to her doctor and was given an inhaler but is not helping. States she also have earache and sore throat. She is unsure if she has had any fevers. ROS All systems reviewed and are negative except as per history of present illness. Medications Home Meds Active Scripts Albuterol Sulfate* (Proair HFA*) 8.5 Gm Hfa.aer.ad, 2 PUFF INH Q4, #1 INHALER Prov:ELSA LAGOS PA-C 05/14/17 Fluticasone Propionate (Flonase Allergy Relief) 9.9 Ml [place].susp, 2 SPRAY NASAL DAILY, #1 BOTTLE TO EACH NOSTRIL Prov:ELSA LAGOS PA-C 05/14/17 Guaifenesin-Dextromethorphan* (Robitussin* DM) 100MG/10MG/5ML Syrup, 10 ML PO Q6H Y for COUGH for 7 Days, ML Prov:ELSA LAGOS PA-C 05/14/17 Prednisone* (Prednisone*) 20 Mg Tab, 40 MG PO DAILY for 4 Days, TAB Prov:ELSA LAGOS PA-C 05/14/17 Azithromycin* (Zithromax*) 250 Mg Tablet, 250 MG PO .ZPACK DIRECTED, #6 TAB TAKE 500 MG (2 TABS) THE FIRST DAY THEN 250 MG (1 TAB) DAYS 2-5 Prov:ELSA LAGOS PA-C 05/14/17 Sulfamethoxazole/Trimethoprim* (Bactrim Ds* Tablet) 1 Each Tablet, 1 TAB PO BID , #20 TAB Prov:SOPHIE ALDRIDGE PA-C 03/22/17 Cephalexin* (Keflex*) 500 Mg Capsule, 500 MG PO QID for 10 Days, CAP Prov:SOPHIE ALDRIDGE PA-C 03/22/17 Tramadol HCl (Tramadol HCl) 50 Mg Tablet, 50 MG PO Q4 Y for PAIN, #20 TAB Prov:DRE SHORE PA-C 02/18/17 Nitrofurantoin Monohyd Macrocr* (Macrobid*) 100 Mg Capsr, 100 MG PO BID for 7 Days, CAP Prov:DRE SHORE PA-C 02/18/17 Acetaminophen (MAPAP) 325 Mg Tablet, 650 MG PO Q6H Y for PAIN LEVEL 1-3 OR FEVER , #60 TAB Prov:STANTON,HUMBLE V. [employer]ER 02/12/17 Furosemide* (Furosemide*) 40 Mg Tablet, 40 MG PO DAILY, #30 TAB Prov:STANTON,HUMBLE V. MACH[employer] PEC[employer] PICKER 02/12/17 Spironolactone* (Aldactone*) 25 Mg Tablet, 12.5 MG PO BID DIURETICS, #60 TAB Prov:STANTON,HUMBLE V. [employer] PICKER 02/12/17 Reported Medications Glipizide* (Glipizide*) 5 Mg Tablet, 5 MG PO BID, TAB 02/10/17 Albuterol Sulfate* (Proair HFA*) 8.5 Gm Hfa.aer.ad, 2 PUFF INH Q6, #1 INHALER 02/10/17 Omeprazole* (Omeprazole*) 20 Mg Capsule.dr, 20 MG PO BID, #60 CAP 06/23/16 Metformin Hcl* (Metformin Hcl*) 500 Mg Tablet, 500 MG PO WITH BREAKFAST DINNE, # 60 TAB 06/23/16 Benazepril Hcl* (Benazepril Hcl*) 20 Mg Tablet, 40 MG PO DAILY, #30 TAB 06/23/16 Allergies Allergies: Coded Allergies: No Known Allergies (Verified Allergy, Mild, 02/18/17) PMhx/Soc History of Surgery: No Anesthesia Reaction: No Hx Neurological Disorder: No Hx Respiratory Disorders: No Hx Cardiac Disorders: Yes (High cholesteroll,HTN) Hx Psychiatric Problems: No Hx Miscellaneous Medical Probl: Yes (Liver cirrohsis , dm ) Hx Alcohol Use: No Hx Substance Use: No Hx Tobacco Use: No Physical Exam Vitals Vital Signs Date Time Temp Pulse Resp B/P Pulse Ox O2 Delivery O2 Flow Rate FiO2 05/14/17 13:58 78 22 99 21 05/14/17 12:21 97.8 84 20 127/52 95 Physical Exam Const: NAD Head: Atraumatic Eyes: Normal Conjunctiva ENT: . Nose no drainage. Throat erythema no exudate no vesicles Neck: Full range of motion..~ No meningismus. Resp: Diffuse wheezing bilaterally all lung brewer. Cardio: Regular rate and rhythm, no murmurs Abd: Soft, non tender, non distended. Normal bowel sounds Skin: No petechiae or rashes Neur: Awake and alert Psych: Normal Mood and Affect Results 24 hrs Current Medications Medications (Trade) Dose Ordered Sig/Sim Route PRN Reason Start Time Stop Time Status Last Admin Dose Admin Albuterol (Proventil 0.5% (Neb)) 5 mg ONCE STAT INH 05/14/17 13:47 05/14/17 13:49 DC 05/14/17 13:57 Ipratropium [place] (Atrovent 0.02% (Neb)) 1 mg ONCE STAT INH 05/14/17 13:47 05/14/17 13:49 DC 05/14/17 13:57 Prednisone (Prednisone) 60 mg ONCE STAT PO 05/14/17 13:47 05/14/17 13:49 DC 05/14/17 14:04 RUN DATE: 05/14/17 [facility] PAGE 1 RUN TIME: [id number] [place] [address] Uche Weinstein M.D. [employer] DESMOND#: [id number] Name: KRISTINE GUZMAN Age/Sex: 61/F Attend Dr: SAMUEL HUDSON MD Acct: [id number] MR# : [id number] : 1955 [facility] Admit: 05/14/17 Specimen: [id number] Status: Complete Pricila: 05/14/17-1399 Rcvd: 05/14 Source: [facility]ISE[facility] Bright Descrip: Procedure Result Microbiology INFLUENZA A & B BY EIA Final INFLU A&B BY EIA INFLUENZA A NEGATIVE (Ref Range Neg) INFLUENZA B NEGATIVE (Ref Range Neg) ................................................................................ ............ Flags: Critical Hi = *H Critical Lo = *L Microbiology Abnormal = * Abnormal Hi = H Abnormal Lo = L Blood Bank Abnormal = * Susceptability Flags: S = Sensitive R = Resistant I = Intermediate END OF REPORT DIAGNOSTIC IMAGING REPORT Patient: KRISTINE GUZMAN : 1955 Age: 61 Sex: F MR #: [id number] DOS: 05/14/17 1347 Ordering MD: ELSA LAGOS PA-C Location: [facility] Room/Bed: PROCEDURE: XR Chest 1 View. CLINICAL INDICATION: Shortness of breath. Cough. TECHNIQUE: AP view of the chest was obtained. COMPARISON: February 10, 2017 FINDINGS: The heart size is within normal limits. Calcified atherosclerosis is noted in the aorta. No consolidations are identified. No pneumothorax is seen. Osseous structures are intact. IMPRESSION: Calcified atherosclerosis in the aorta. Clear lungs. RPTAT: AA .Ryan Campos MD, MD Date Time Electronically viewed and signed by .Ryan Campos MD, MD on 05/14/2017 14:59 .P/ CC: ELSA LAGOS PA-C Procedures/MDM This is a 61-year-old female presents the emergency department today complaining of URI symptoms for the past 10 days. Patient is afebrile and otherwise well-appearing however oxygen saturation 95% and she has diffuse wheezing bilaterally in all lung brewer. Given this I did obtain a chest x-ray and give the patient a continuous breathing treatment addition to prednisone. Obtain an influenza swab given patient's age Chest X-ray shows calcified atherosclerosis of the aorta otherwise no consolidations are identified there is no pneumothorax. Clear lungs. Influenza A and B is negative Symptoms at this time is consistent with bronchitis. Low suspicion for pneumonia, PE, abscess, pleural effusion, pneumothorax. She will be given a prescription for azithromycin, short course of prednisone, Robitussin and Flonase. She may continue her Proventil inhaler At this time the patient is stable for discharge and outpatient management. Patient should follow up with their PCP in the next 1-2 days. They may return to the emergency department sooner for any persistent or worsening of symptoms. Patient understood and agreed with the plan. Departure Diagnosis: Primary Impression: Cough Condition: Fair ESLA LAGOS PA-C May 14, 2017 13:52
--- NOTE | 2017-05-14 15:00 | RADRPT ---
PROCEDURE: XR Chest 1 View. CLINICAL INDICATION: Shortness of breath. Cough. TECHNIQUE: AP view of the chest was obtained. COMPARISON: February 10, 2017 FINDINGS: The heart size is within normal limits. Calcified atherosclerosis is noted in the aorta. No consol idations are identified. No pneumothorax is seen. Osseous structures are intact. IMPRESSION: Calcified atherosclerosis in the aorta. Clear lungs. RPTAT: AA .Ryan Campos MD, Date Time Electronically viewed and signed by .Ryan Campos MD, MD on 05/14/2017 14:59 .P/
[2017-05-14] MEDS ORDERED: PRED20TA PO (15:17)
[2017-05-14] MEDS ORDERED: UDROBDM PO (15:17)
[2017-05-14] MEDS ORDERED: AZIT250T94 PO (15:17)
[2017-05-14] MEDS ORDERED: FLUT9.9S NASAL (15:18)
[2017-05-14] MEDS ORDERED: ALBU8.5H3 INH (15:18)
[2017-05-14 15:25] VITALS: BP 128/79; PULSE 84; RESP 18; TEMP 97.9
== END 2017-05-14 15:25 | disposition home or self-care (01) ==
LOC: FTE 12:02
DX: R05 Cough (principal); I10 Essential (primary) hypertension; E11.9 Type 2 diabetes mellitus without complications; R06.2 Wheezing; Z79.84 Long term (current) use of oral hypoglycemic drugs
CPT/HCPCS: 71010; 87400; 94644; J7512; Z7502; Z7610

== ENCOUNTER 2017-07-20 14:05 | Emergency (ER) | END 2017-07-20 19:22 | disposition home or self-care (01) ==

== ENCOUNTER 2017-12-20 12:54 | Emergency (ER) | END 2017-12-20 16:46 | disposition home or self-care (01) ==

== ENCOUNTER 2018-09-09 07:22 | Day surgery (SDC) | payer OTHER ==
[~2018-09-09] VITALS: Ht 160 cm; Wt 104.3 kg
[~2018-09-09 07:22] MED LIST changes: -ACET325T40 PO; +ALBU18HF INHALATION; -ALBU8.5H3 INH; -BENA20TA48 PO; +BENA40TA56 PO; -CEPH-443 PO; +DOCU-159 PO; -FURO40TA4 PO; -METF500T4 PO; -NITR-58 PO; +OXYB10TA6 PO; -SPIR25TA PO; -SULF1TAB31 PO; -TRAM50TA2 PO; +VENL75TA2 PO
[2018-09-09 08:19] VITALS: Ht 160 cm; Wt 104.3 kg
[2018-09-09 08:30] VITALS: BP 113/53; PULSE 67; RESP 18
[2018-09-09] MEDS ORDERED: FUROSEMIDE PO (09:20)
[2018-09-09] MEDS ORDERED: JANUVIA PO (09:20)
[2018-09-09] MEDS ORDERED: AMLODIPINE PO (09:20)
[2018-09-09] MEDS ORDERED: FENTAnyl 50 MCG/ML VIAL ONE (09:23)
[2018-09-09] MEDS ORDERED: PROPOFOL 20 ML ONE ×2 (09:23→10:32)
--- NOTE | 2018-09-09 09:23 | PREAC ---
Date/Time of Note Date/Time of Note DATE: 09/09/18 TIME: 09:22 Anesthesia Eval and Record Evaluation Time Pre-Procedure Interview DATE: 09/09/18 TIME: 09:22 Age 62 Sex female NPO: 8 hrs Preoperative diagnosis dysphagia screening Planned procedure EGD colonoscopy Past Medical History Past Medical History: Includes Endo: Diabetes Pulm: Asthma Musculoskeletal: Osteoarthritis Surgery & Anesthesia Issues No known issue Meds Anticoagulation: No Beta Alex within 24 hr: No Reason Beta Alex not given: Pt. not on B-Alex Active Scripts Oxybutynin Chloride* (Ditropan* XL) 10 Mg Tab.er.24, 10 MG PO DAILY for 30 Days, TAB.SA Prov:MERVIN BURRIS MD 12/20/17 Venlafaxine Hcl* (Effexor XR*) 75 Mg Tab.er.24, 75 MG PO DAILY for 30 Days, #30 TAB.SA Prov:MERVIN BURRIS MD 12/20/17 Benazepril Hcl* (Benazepril Hcl*) 40 Mg Tablet, 40 MG PO DAILY, #30 TAB Prov:MERVIN BURRIS MD 12/20/17 Reported Medications [Furosemide] No Conflict Check, PO 09/09/18 [Januvia] No Conflict Check, PO 09/09/18 [Amlodipine] No Conflict Check, PO 09/09/18 Docusate Sodium* (Docusate Sodium*) 100 Mg Capsule, 100 MG PO BID, #60 CAP 12/20/17 Omeprazole* (Omeprazole*) 20 Mg Capsule.dr, 20 MG PO AC BREAKFAST, #30 CAP 12/20/17 Discontinued Reported Medications Oxybutynin Chloride* (Ditropan* XL) 10 Mg Tab.er.24, 10 MG PO DAILY, TAB.SA 12/20/17 Glipizide* (Glipizide*) 5 Mg Tablet, 5 MG PO BID, TAB 12/20/17 Albuterol Sulfate* (Ventolin HFA*) 18 Gm Hfa.aer.ad, 2 PUFF INHALATION Q6H, #1 INHALER 12/20/17 Discontinued Scripts Glipizide* (Glipizide*) 5 Mg Tablet, 5 MG PO BID for 30 Days, TAB Prov:MERVIN BURRIS MD 12/20/17 Venlafaxine Hcl* (Effexor XR*) 75 Mg Tab.er.24, 75 MG PO DAILY, #30 TAB.SA Prov:MERVIN BURRIS MD 12/20/17 Benazepril Hcl* (Benazepril Hcl*) 40 Mg Tablet, 40 MG PO DAILY, #30 TAB Prov:MERVIN BURRIS MD 12/20/17 Meds reviewed: Yes Allergies Coded Allergies: No Known Allergies (Verified Allergy, Mild, 12/20/17) Allergies Reviewed: Yes Labs/Studies Labs Reviewed: Reviewed by anesthesiologist test: N/A Studies: ECG (n/a), CXR (n/a) Pre-procedure Exam Last vitals Vital Signs Date Temp Pulse Resp B/P (MAP) Pulse Ox O2 O2 Flow FiO2 Time Delivery Rate 09/09/18 97.4 67 18 113/53 99 Room Air 08:30 (73) Airway: Adequate mouth opening Mallampati: Mallampati I Teeth: Normal Lung: Normal Heart: Normal ASA Physical Status ASA physical status: 2 Emergency: None Planned Anesthetic General/MAC: MAC Planned Pain Management Parenteral pain med Pre-operative Attestations Prior to commencing anesthesia and surgery, the patient was re-evaluated, there was verification of: *The patient's identity *The results of appropriate recent lab work and preoperative vital signs *The above evaluation not changing prior to induction *Anesthetic plan, risk benefits, alternative and complications discussed with patient/family; questions answered; patient/family understands, accepts and wishes to proceed. BOLIVAR OCHOA MD Sep 09, 2018 09:23
[2018-09-09 10:21] VITALS: BP 114/56; PULSE 67; RESP 20
--- NOTE | 2018-09-09 10:31 | PAC ---
Date/Time of Note Date/Time of Note DATE: 09/09/18 TIME: 10:31 Post-Anesthesia Notes Post-Anesthesia Note Last documented vital signs Vital Signs Date Temp Pulse Resp B/P (MAP) Pulse Ox O2 O2 Flow FiO2 Time Delivery Rate 09/09/18 97.4 67 18 113/53 99 Room Air 08:30 (73) Activity: WNL Respiratory function: WNL Cardiovascular function: WNL Mental status: Baseline Pain reasonably controlled: Yes Hydration appropriate: Yes Nausea/Vomiting absent: No BOLIVAR OCHOA MD Sep 09, 2018 10:31
== END 2018-09-09 14:11 | disposition home or self-care (01) ==
LOC: GIL 07:22
PROVIDERS: ATTEND Internal Medicine Gastroenterology
DX: Z12.11 Encounter for screening for malignant neoplasm of colon (principal); K29.30 Chronic superficial gastritis without bleeding; K20.9 Esophagitis, unspecified; E11.9 Type 2 diabetes mellitus without complications; J45.909 Unspecified asthma, uncomplicated
CPT/HCPCS: 43239; 45378; 82962; 88305; 88312; J3010; Z7610

== ENCOUNTER 2018-11-17 19:32 | Emergency (ER) | payer OTHER ==
[~2018-11-17] VITALS: Ht 152.4 cm; Wt 106.9 kg
[~2018-11-17 19:32] MED LIST changes: -ALBU18HF INHALATION; +AMLODIPINE PO; +FUROSEMIDE PO; -GLIP5TAB13 PO; +JANUVIA PO
[2018-11-17 19:37] VITALS: Ht 152.4 cm; Wt 106.9 kg
[2018-11-17] MEDS ORDERED: KETOROLAC 30 MG INJ IV SCH (20:30)
[2018-11-17] MEDS ORDERED: IBUP-1542 PO (20:46)
[2018-11-17 21:05] VITALS: BP 123/61; PULSE 80; RESP 17
--- NOTE | 2018-11-17 21:35 | ERD ---
ER Documentation Chief Complaint Chief Complaint lower abdominal pain x 3 days HPI Patient is a 61-year-old female with hypertension, diabetes, and cirrhosis who presents with lower abdominal pain. The symptoms started on Sunday. The patient has back pain as well. The pain is been constant. She tried ibuprofen. She said that she had pain with urination but no fever. She does have a primary doctor. Upon review of old medical records the patient has multiple visits to the ER for various complaints. ROS All systems reviewed and are negative except as per history of present illness. Medications Home Meds Active Scripts Ibuprofen* (Motrin*) 600 Mg Tab, 600 MG PO Q6H PRN for PAIN AND OR ELEVATED TEMP, #30 TAB Prov:PAULETTE DOUGLASS MD 11/17/18 Oxybutynin Chloride* (Ditropan* XL) 10 Mg Tab.er.24, 10 MG PO DAILY for 30 Days, TAB.SA Prov:MERVIN BURRIS MD 12/20/17 Venlafaxine Hcl* (Effexor XR*) 75 Mg Tab.er.24, 75 MG PO DAILY for 30 Days, #30 TAB.SA Prov:MERVIN BURRIS MD 12/20/17 Benazepril Hcl* (Benazepril Hcl*) 40 Mg Tablet, 40 MG PO DAILY, #30 TAB Prov:MERVIN BURRIS MD 12/20/17 Reported Medications [Furosemide] No Conflict Check, PO 09/09/18 [Januvia] No Conflict Check, PO 09/09/18 [Amlodipine] No Conflict Check, PO 09/09/18 Docusate Sodium* (Docusate Sodium*) 100 Mg Capsule, 100 MG PO BID, #60 CAP 12/20/17 Omeprazole* (Omeprazole*) 20 Mg Capsule.dr, 20 MG PO AC BREAKFAST, #30 CAP 12/20/17 Allergies Allergies: Coded Allergies: No Known Allergies (Verified Allergy, Mild, 12/20/17) PMhx/Soc History of Surgery: No Anesthesia Reaction: No Hx Neurological Disorder: No Hx Respiratory Disorders: Yes (ASTHMA) Hx Cardiac Disorders: No Hx Psychiatric Problems: Yes (DEPRESSION) Hx Miscellaneous Medical Probl: No Hx Alcohol Use: No Hx Substance Use: No Hx Tobacco Use: No Smoking Status: Never smoker FmHx Family History: diabetes Physical Exam Vitals Vital Signs Date Temp Pulse Resp B/P (MAP) Pulse Ox O2 O2 Flow FiO2 Time Delivery Rate 11/17/18 80 17 123/61 99 Room Air 21:05 (81) 11/17/18 97.8 63 18 127/56 99 19:37 (79) Physical Exam Const: No acute distress Head: Atraumatic Eyes: Normal Conjunctiva ENT: Normal External Ears, Nose and Mouth. Neck: Full range of motion. No meningismus. Resp: Clear to auscultation bilaterally Cardio: Regular rate and rhythm, no murmurs Abd: Soft, mild tenderness in the lower mid portion of the abdomen without rebound or guarding Skin: No petechiae or rashes Back: No midline or flank tenderness Ext: No cyanosis, or edema Neur: Awake and alert Psych: Normal Mood and Affect Results 24 hrs Laboratory Tests Test 11/17/18 20:22 Bedside Urine pH (LAB) 6.5 Bedside Urine Protein (LAB) Negative Bedside Urine Glucose (UA) Negative Bedside Urine Ketones (LAB) Negative Bedside Urine Blood 1+ Bedside Urine Nitrite (LAB) Negative Bedside Urine Leukocyte Esterase (L Negative Current Medications Medications Dose Sig/Sim Start Time Status Last (Trade) Ordered Route PRN Stop Time Admin Dose Reason Admin Ketorolac 30 mg ONCE IV 11/17/18 DC 11/17/18 Tromethamine 20:30 11/17/18 20:45 (Toradol) 21:07 Procedures/MDM Urine dip is negative for infection. Patient is a 7-year-old female presents with acute on chronic abdominal pain. Urine dip is negative for infection. Her abdominal exam is benign and vital signs are normal. I doubt appendicitis, cholecystitis, pink otitis, or bowel obstruction. I believe outpatient management is appropriate but the patient will need close follow-up with her primary doctor within 24 hours for reevalua tion. She can return for any worsening symptoms. Departure Diagnosis: Primary Impression: Abdominal pain Abdominal location: lower abdomen, unspecified Qualified Codes: R10.30 - Lower abdominal pain, unspecified Condition: Fair Patient Instructions: Abdominal Pain Referrals: [facility] (PCP) Additional Instructions: Visite a estephania napoles para un EXAMEN.Regrese a estas instalaciones si no se mejora ang esperbamos o ang le payal. PAULETTE DOUGLASS MD November 17, 2018 21:35
== END 2018-11-17 21:07 | disposition home or self-care (01) ==
LOC: E/R 19:32
DX: R10.30 Lower abdominal pain, unspecified (principal); J45.909 Unspecified asthma, uncomplicated
CPT/HCPCS: 81003; 96372; J1885; Z7502